=== PATIENT | male | born 1980 | race Hispanic/Latino ===

== ENCOUNTER 2016-06-30 17:08 | Inpatient (IN) | payer OTHER ==
[~2016-06-30] VITALS: Ht 162.6 cm; Wt 57.4 kg
--- NOTE | 2016-06-30 17:27 | NUR ---
PT SIB PCP FOR HYPOTHERMIA AND CLOUDY URINE VIA HOBBS. PT HYPOTHERMIC IN TRIAGE VIA TEMPORAL AT 88.0 DEGREES. PT IS FROM A SHEL[place] AND PER SHELTER EMPLOYEE PT WAS RECENTLY TRANSFERRED FROM [facility] TO [facility]. PT IS MINIMALLY VERBAL AT BASELINE, SHOUTING IN TRIAGE. PER SHELTER EMPLOYEE PT IS AT HIS BASELINE MENTAL STATUS AND HAS BEEN ACTING "LIKE HIMSELF, WE ARE SHOCKED THE DOCTOR SENT US HERE, WE WERE JUST THERE FOR A HEADACHE."
--- NOTE | 2016-06-30 17:33 | NUR ---
PT TO [facility] RM 8 VIA W/C KAIT LUKE AT BEDSIDE FOR EVAL
--- NOTE | 2016-06-30 17:37 | ED AMS/SEIZURE/WEAK/DIZZY ---
History of Present Illness General Chief Complaint: General Adult Stated Complaint: SIB SCHWITZER, HYPOTHERMIC, HYPOTENSION Source: patient Exam Limitations: physical impairment Vital Signs & Intake/Output Vital Signs & Intake/Output Vital Signs Date Time Temp Pulse Resp B/P Pulse O2 O2 Flow FiO2 Ox Delivery Rate 07/01 0042 96.7 78 20 112/64 100 Room Air 07/01 0030 100 Room Air 06/30 2328 98.2 78 20 117/58 100 Room Air 06/30 2231 97.0 74 20 100/50 98 Room Air 06/30 2055 95.4 59 18 101/51 99 Room Air 06/30 2004 94.5 06/30 2003 94.2 56 18 106/53 100 Room Air 06/30 1903 67 22 95/44 96 Room Air 06/30 1830 96 Room Air Room Air 06/30 1751 94.3 06/30 1733 91.5 06/30 1726 88.0 88 14 133/79 99 Room Air ED Intake and Output 07/01 0000 06/30 1200 Intake Total 1000 Output Total Balance 1000 Intake, IV 1000 Patient 135 lb Weight Allergies Coded Allergies: Penicillins (Severe, DIFFICULTY BREATHING 06/30/16) venom-honey bee (Severe, HIVES 06/30/16) Cephalosporins (UNKNOWN PER 06/30/16) NSAIDS (Non-Steroidal Anti-Inflamma (UNKNOWN PER 06/30/16) latex (UNKNOWN PER 06/30/16) shellfish derived (UNKNOWN PER 06/30/16) sulfamethoxazole (From BACTRIM) (UNKNOWN PER 06/30/16) trimethoprim (From BACTRIM) (UNKNOWN PER 06/30/16) Reconcile Medications Acetaminophen 325 MG TABLET 2 TAB G TUBE Q4H PRN PAIN/TEMP>100.5 (Reported) Acetaminophen (Acephen) 650 MG SUPP.RECT 1 SUPP UT Q4H PRN PAIN/TEMP>100.5 ( Reported) Bacitracin 500 UNIT/GRAM OINT...G. 1 KAITY TOP AD PRN ABRASIONS/LACERATIONS ( Reported) apply to affected area(s) Bisacodyl 10 MG SUPP.RECT 1 SUP RC DAILY PRN CONSTIPATION (Reported) Epinephrine (Epipen 2-Blayne) 0.3 MG/0.3 ML AUTO.INJCT 0.3 MG INJ AD PRN ANAPHYLAXIS (Reported) Ergocalciferol (Vitamin D2) (Vitamin D2) 50,000 UNIT CAPSULE 1 CAP G TUBE Q30D SUPPLEMENT (Reported) Ferrous Sulfate (Ferosul) 220 MG (44 MG IRON)/5 ML SOLUTION 7.4 ML G TUBE BID SUPPLEMENT (Reported) Ipratropium/Albuterol Sulfate (Iprat-Albut 0.5-3(2.5) MG/3 Ml) 0.5 MG-3 MG (2.5 MG BASE)/3 ML AMPUL.NEB 1 VIAL INH Q4H PRN COUGH/WHEEZING (Reported) Lactobacillus Acidophilus (Acidophilus) 1 EACH CAPSULE 1 CAP G TUBE TID PROBIOTIC (Reported) Levetiracetam (Keppra) 100 MG/ML SOLUTION 5 ML G TUBE BID SEIZURES (Reported) Levothyroxine Sodium 25 MCG TABLET 1 TAB G TUBE DAILY THYROID (Reported) Magnesium Hydroxide (Milk Of Magnesia) 400 MG/5 ML ORAL.SUSP 30 ML G TUBE DAILY CONSTIPATION (Reported) Melatonin 1 MG/ML LIQUID 3 ML G TUBE QHS SUPPLEMENT (Reported) Na Phos,M-B/Na Phos,Di-Ba (Fleet Enema) 19 GRAM-7 GRAM/118 ML ENEMA 1 E RC DAILY PRN CONSTIPATION (Reported) [NOVA SOURCE RENAL] 220 ML G TUBE 5XDAILY SUPPLEMENT (Reported) Omeprazole 20 MG CAPSULE.DR 1 CAP G TUBE DAILY GI (Reported) Risperidone (Risperidone Odt) 2 MG TAB.RAPDIS 1 TAB G TUBE BID UNKNOWN ( Reported) Valproic Acid (As Sodium Salt) (Valproic Acid) 250 MG/5 ML SOLUTION 20 ML G TUBE Q8H SEIZURES (Reported) Triage Note: PT SIB PCP FOR HYPOTHERMIA AND CLOUDY URINE VIA HOBBS. PT HYPOTHERMIC IN TRIAGE VIA TEMPORAL AT 88.0 DEGREES. PT IS FROM A LONG-TERM AND PER LONG-TERM EMPLOYEE PT WAS RECENTLY TRANSFERRED FROM [facility] TO [facility]. PT IS MINIMALLY VERBAL AT BASELINE, SHOUTING IN TRIAGE. PER LONG-TERM EMPLOYEE PT IS AT HIS BASELINE MENTAL STATUS AND HAS BEEN ACTING "LIKE HIMSELF, WE ARE SHOCKED THE DOCTOR SENT US HERE, WE WERE JUST THERE FOR A HEADACHE." Triage Nurses Notes Reviewed? yes Onset: Abrupt Duration: unknown duration Timing: recent history No Modifying Factors: none HPI: 36-year-old male comes into emergency room for evaluation of hypothermia and low blood pressure. Patient was being evaluated by his primary care doctor and was found to the bee stings in the office. Patient unable to provide any history. 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 ([place]) Past History Travel History Traveled to [place] past 21 day No Medical History Any Pertinent Medical History? see below for history Other Medical Hx: Intellectual disability, infantile autism, aspiration pneumonia, neuromuscular dysfunction, adrenocortical insufficiency, suprapubic urostomy, hypertension, seizures, hypothyroid, anemia, osteoarthritis, chronic kidney disease, constipation, MRSA, C. difficile, vancomycin resistance, Surgical History Surgical History: non-contributory Family History Hx Contributory? No ([place]) Review of Systems Review of Systems Constitutional: Reports: see HPI. EENTM: Reports: no symptoms. Respiratory: Reports: no symptoms. Cardiovascular: Reports: no symptoms. GI: Reports: no symptoms. Genitourinary: Reports: no symptoms. Musculoskeletal: Reports: no symptoms. Skin: Reports: no symptoms. Neurological/Psychological: Reports: no symptoms. Hematologic/Endocrine: Reports: no symptoms. Immunologic/Allergic: Reports: no symptoms. All Other Systems: Reviewed and Negative Comments Patient unable to answer questions, according to care provider all other review of systems negative ([place]) Physical Exam Physical Exam General Appearance: alert, awake Head: atraumatic Eyes: Bilateral: normal appearance. Ears, Nose, Throat: normal ENT inspection Neck: normal inspection Respiratory: normal breath sounds, no respiratory distress Cardiovascular: regular rate/rhythm Gastrointestinal: soft Extremities: normal range of motion Neurologic/Psych: awake, alert Skin: intact, normal color Core Measures ACS in differential dx? No CVA/TIA Diagnosis: No Severe Sepsis Present: Yes BC x2: Yes Lactic Acid x2: Yes IV ABX Broad Spectrum: Yes NS/LR Started: Yes Septic Shock Present: No ([place]) ED Sepsis Exam Date of Focused Sepsis Exam: 06/30/16 Time of Focused Sepsis Exam: 1900 Sepsis Cardiac Exam: Regular Rate/Rhythm Sepsis Resp Exam: CTA Sepsis Cap Refill Exam: <2 Sec Sepsis Peripheral Pulse Exam: Normal Sepsis Peripheral Pulse Location: Radial Sepsis Skin Color Exam: Flushed Skin Temp/Moisture Exam: Cool/Dry ([place]) Progress Differential Diagnosis: arrythmia, alcohol intoxication, anemia, benign positional vertigo, CVA/stroke, dehydration, drug intoxication, encephalitis, electrolyte imbalance, GI bleed, hypoglycemia, hypoxia, intracranial Hem., intracranial mass/tumor, labrynthitis, meningitis, Meniere's disease, migraine MENDEZ, multiple sclerosis, pneumonia, postural hypotension, presyncope, post- traumatic vertigo, sepsis, seizure disorder, subarachnoid Hem., UTI/pyelo, vertebrobasilar insuff Plan of Care: Orders Procedure Date/time Status Nothing by Mouth 07/01 B Active EXTREMETIES CULTURE 07/01 51 Active Wound Care/Dressing 07/01 39 Active Weight 07/01 39 Active VTE Mechanical Prophylaxis 07/01 39 Active Vital Signs 07/01 39 Active Turn and Reposition 07/01 39 Active Drains/Tubes 07/01 39 Active Teach/Educate 07/01 39 Active Skin Integrity Protocol 07/01 004 Active Skin/Pressure Ulcer Assess (Sk 07/01 39 Active Precautions 07/01 39 Active Pain Treatment and Response 07/01 39 Active Nutritional Intake, Monitor 07/01 39 Active Isolation 07/01 004 Active Patient Care Conference 07/01 39 Active Activity/Ambulation 07/01 004 Active VRE ACTIVE SURVIELLANCE 07/01 003 Active ACTIVE SURVEILLANCE NARES 07/01 003 Active Lab Add-on Test 07/01 [facility] Active Restraint- Medical 07/01 [facility] Active PHARMACY COMMUNICATION FORM 07/01 [facility] Active Pathway - chart 06/30 2305 Active House Staff 06/30 2305 Active Patient Data 06/30 2305 Active Code Status 06/30 2305 Active URINE DRUGS OF ABUSE 06/30 2152 Complete Patient Data 06/30 2142 Active Admit to inpatient 06/30 2058 Active LACTIC ACID 06/30 2037 Complete Intake & Output 06/30 1933 Active BLOOD CULTURE 06/30 1915 Active FOLIC ACID 06/30 1815 Complete VITAMIN B12 06/30 1815 Complete TYPE & SCREEN (NOT X-MATCH) 06/30 1804 Complete CULTURE,URINE 06/30 1737 Active URINALYSIS 06/30 1737 Complete TROPONIN LEVEL 06/30 1737 Complete LACTIC ACID 06/30 1737 Complete COMPREHENSIVE METABOLIC PANEL 06/30 1737 Complete CBC WITHOUT DIFFERENTIAL 06/30 1737 Complete EKG 06/30 1737 Active VTE Mechanical Prophylaxis 06/30 UNK Active NUTRITIONAL CONSULT 06/30 UNK Active Current Medications Sig/Judi Start time Last Medication Dose Stop Time Status Admin Melatonin 3 MG AT BEDTIME 07/01 2200 AC (Melatonin) Ferrous Sulfate 300 MG BID 07/01 1000 AC Lactobacillus 1 CAP TID 07/01 1000 AC Acidophilus (Probiotic) Omeprazole 20 MG DAILY 07/01 1000 AC (Prilosec) Vancomycin HCl 1,000 MG DAILY 07/01 1000 AC Sodium Chloride 250 ML (Normal Saline 0.9%) Levothyroxine Sodium 0.025 MG DAILY AC 07/01 0700 AC (Synthroid) Ceftazidime 1,000 MG Q8H 07/01 0400 AC (Fortaz) Magnesium Hydroxide 30 ML DAILY PRN 07/01 0015 AC (Milk Of Magnesia) Acetaminophen 650 MG Q4H PRN 06/30 2330 AC (Tylenol) Bisacodyl 10 MG DAILY PRN 06/30 2330 AC (Dulcolax Supp) Laboratory Tests 06/30/16 2240: Lactic Acid 0.6 L 06/30/16 1824: Urine Opiates Screen < 100.00, Methadone Screen < 40, Barbiturate Screen < 60, Ur Phencyclidine Scrn < 6.00, Amphetamines Screen < 100, U Benzodiazepines Scrn < 85, Urine Cocaine Screen < 50, Urine Cannabis Screen < 5.00, Urine Color YEL, Urine Clarity CLDY H, Urine pH 8.5 H, Ur Specific Froid <= 1.005, Urine Protein 30 H, Urine Ketones NEG, Urine Nitrite NEG, Urine Bilirubin NEG, Urine Urobilinogen 0.2, Ur Leukocyte Esterase LARGE H, Ur Microscopic SEDIMENT EXAMINED, Urine RBC 3-5, Urine WBC PACKD H, Ur Epithelial Cells MOD H, Urine Crystals 3+ TRIP PHOS H, Urine Hemoglobin TRACE-INTACT H, Urine Glucose NEG 06/30/16 1815: Anion Gap 11, Estimated GFR > 60, BUN/Creatinine Ratio 78.0 H, Glucose 79, Lactic Acid 1.1, Calcium 10.0, Total Bilirubin 0.5, AST 58, ALT 48, Alkaline Phosphatase 97, Troponin I < 0.01, Total Protein 7.0, Albumin 3.5, Globulin 3.5, Albumin/Globulin Ratio 1.0 L, Vitamin B12 826, Folate > 20.0 H, CBC w Diff NO MAN DIFF REQ, RBC 3.55 L, MCV 93.9, MCH 31.5 H, RDW 16.5 H, MPV 10.4, Gran % 61.5, Lymphocytes % 23.8, Monocytes % 8.5, Eosinophils % 5.8 H, Basophils % 0.4 , Absolute Granulocytes 3.2, Absolute Lymphocytes 1.2, Absolute Monocytes 0.4, Absolute Eosinophils 0.3, Absolute Basophils 0, PUBS MCHC 33.6 Microbiology 07/01 44 EXTREMITIE: Culture & Sensitivity - RECD 07/01 44 EXTREMITIE: Gram Stain - RECD 07/01 44 UPPER RESP: Surveillance Culture - RECD 07/01 44 GI: Surveillance Culture - RECD 06/30 1929 BLOOD: Blood Culture - RECD 06/30 1921 BLOOD: Blood Culture - RECD 06/30 1823 URINE ROUT: Urine Culture - RECD Diagnostic Imaging: Viewed by Me: CT Scan. Discussed w/RAD: CT Scan. Radiology Impression: SERVICE DATE: 06/30/16 EXAM TYPE: CAT - CT ABD & PELVIS W/O IV CONTRAS; CT CHEST WO IV CONTRAST EXAMINATION: CT CHEST, ABDOMEN AND PELVIS WITHOUT CONTRAST CLINICAL INFORMATION: Septic. Altered mental status. COMPARISON: None. TECHNIQUE: Multidetector volumetric CT images obtained through the chest abdomen pelvis without oral or IV contrast. Coronal and sagittal reformatted images are performed at the CT scanner DLP: 370.8 mGy-cm. FINDINGS: CT CHEST: Lungs: The lungs are clear with no evidence of inflammation or nodules. Mediastinum: The mediastinum is normal. Pleura: There is no pleural effusion. No pleural mass or thickening. Axilla: No lymphadenopathy. CT ABDOMEN AND PELVIS: LIVER, GALLBLADDER, AND BILIARY TREE: There are scattered calcified granuloma in the right and left lobe of liver. No focal suspicious liver lesion. No intrahepatic bile duct dilatation. The gallbladder is unremarkable with no evidence of radiopaque gallstones, gallbladder wall thickening, or obvious pericholecystic inflammatory changes. PANCREAS: No acute change of the pancreas. No mass. No pancreatic duct dilatation. SPLEEN: Spleen normal in size and contour. No focal lesion. ADRENAL GLANDS: Adrenal glands are normal in size. No focal mass. KIDNEYS AND URETERS: Mild dilatation of the collecting system of both kidneys to the ureterovesical junction. There are a few small nonobstructive stones in the right and left kidneys. No ureteral calculus. No edema around either kidney. Perinephric fat is normal. BLADDER: Suprapubic catheter in place. Bladder empty. GASTROINTESTINAL TRACT: Rectal catheter in place. Percutaneous gastrotomy tube. Tube in good position with no inflammation. No hernia at the abdominal wall No acute change of the bowel. No bowel obstruction. No bowel wall thickening or edema. Moderate volume of stool in the colon. The small bowel loops are unremarkable. The appendix is not seen. No inflammation of the mesentery. Bowel wall thickening or edema. MESENTERY: No focal inflammation. No free fluid. No free air. ABDOMINAL WALL: No significant hernia is appreciated. LYMPH NODES: Normal. VASCULAR: Unremarkable. PELVIC VISCERA: Unremarkable. OSSEOUS STRUCTURES: Degenerative change of the lumbar spine. Bilateral spondylolysis L5 pars interarticularis without spondylolysis. IMPRESSION: Percutaneous gastrotomy tube. Suprapubic catheter in bladder. Bilateral nonobstructive renal stones. Mild hydronephrosis of both kidneys which could be chronic. No ureteral calculus. DICTATED BY: ARON VALENTINE MD DATE/TIME DICTATED:06/30/161845 Initial ED EKG: normal intervals, normal p-waves, normal sinus rhythm, rate (67) ([place]) Departure Departure Disposition: STILL A PATIENT Condition: Stable Clinical Impression Primary Impression: Hypothermia Secondary Impressions: Sepsis, UTI (urinary tract infection) Departure Forms: Customer Survey General Discharge Information ([place]) Admission Note Spoke With: JEANETTE BISHOP,DESIRE Tyler Documentation of Exam: Documentation of any treatments & extenuating circumstances including Concerns Regarding Discharge (functional status, medication knowledge or non-compliance, living conditions, etc.) that warrant an admission rather than observation: pt with urosepsis, hypothermia, shock, now improving... pt merits icu admission for iv abx, bear-hugger for hypothermia. PA/DISTRIBUTION AGENT Co-Sign Statement Statement: ED Attending supervision documentation- [x] I saw and evaluated the patient. I have also reviewed all the pertinent lab results and diagnostic results. I agree with the findings and the plan of care as documented in the PA's/DISTRIBUTION AGENT's documentation. pt signed out to me. pt with urosepsis, hypothermia..... pt to be admitted to icu. [] I have reviewed the ED Record and agree with the PA's/DISTRIBUTION AGENT's documentation. [] Additions or exceptions (if any) to the PAs/DISTRIBUTION AGENT's note and plan are summarized below: [] (ALEC BISHOP,VIPIN Rincon) Critical Care Note Critical Care Note Critical Care Time: 30-74 min (TI CARBALLO,NEW)
--- NOTE | 2016-06-30 17:40 | NUR ---
PT NOTED TO HAVE PREHOSPITAL SUPERPUBIC CATHETER AND GASTRIC TUBE. ALSO NOTED TO HAVE DRESSING IN PLACE TO BUTTOCKS, DRESSING IS CLEAN/DRY/INTACT.
--- NOTE | 2016-06-30 18:00 | NUR ---
SPOKE WITH MESFIN RUTHERFORD FROM [facility] WHO REPORTS THAT PATIENT IS NEW TO THEIR FACILITY X 1 DAY AND THAT HE WAS REPORTED TO NEED MONTHLY BLOOD TRANSFUSIONS, HAD H/H OF 7 AND 23 IN APRIL, BUN WAS ELEVATED AND CREATININE WAS NORMAL. STATES YESTERDAY HE WAS NORMAL TEMPERATURE, HYPOTHERMIA STARTED TODAY. REPORTS THAT PRIOR TO BEING WITH THEM HE WAS BACK AND FORTH BETWEEN A HOSPITAL AND THE HALFWAY IN [place] WHERE HE WAS RESIDING. STATES THE FAMILY WANTED HIM MOVED TO A [facility] CLOSER TO THEM WHICH IS WHY HE WAS MOVED TO [place].
[2016-06-30] MEDS ORDERED: FEROSUL220 MG/5 M G TUBE (18:08)
[2016-06-30] MEDS ORDERED: ACIDOPHILUS1 EACH G TUBE (18:09)
[2016-06-30] MEDS ORDERED: KEPPRA100 MG/1 M G TUBE (18:09)
[2016-06-30] MEDS ORDERED: LEVOTHYROXINE25 MCG G TUBE (18:10)
[2016-06-30] MEDS ORDERED: MELATONIN1 MG/1 ML G TUBE (18:11)
[2016-06-30] MEDS ORDERED: OMEPRAZOLE20 M2 G TUBE (18:12)
[2016-06-30] MEDS ORDERED: RISPERIDONE ODT2 MG G TUBE (18:13)
[2016-06-30] MEDS ORDERED: VITAMIN D250000 UNIT G TUBE (18:14)
[2016-06-30] MEDS ORDERED: VALPROIC A250 MG/51 G TUBE (18:14)
[2016-06-30] MEDS ORDERED: [UNRECOGNIZED DRUG - OTHER] G TUBE (18:16)
[2016-06-30] MEDS ORDERED: MILK OF MA400 MG/52 G TUBE (18:18)
[2016-06-30] MEDS ORDERED: IPRAT-ALBUT 0.5-3 ML INH (18:18)
[2016-06-30] MEDS ORDERED: FLEET ENEMA133 ML RC ×2 (18:19→23:16)
[2016-06-30] MEDS ORDERED: BISACODYL10 M1 RC (18:20)
[2016-06-30] MEDS ORDERED: ACEPHEN650 M1 PR (18:21)
[2016-06-30] MEDS ORDERED: ACETAMINOPHEN325 M2 G TUBE (18:21)
[2016-06-30] MEDS ORDERED: BACITRACIN28.4 GM TOP (18:22)
[2016-06-30] MEDS ORDERED: EPIPEN 2-P0.3 MG/0.3 INJ (18:24)
--- NOTE | 2016-06-30 18:26 | NUR ---
PT MOVED TO [facility]CH[facility] WITH ASSIST OF 2 STAFF, RECTAL TEMP OBTAINED (94.3), YOUSUF HUGGER BLANKET APPLIED. IV ACCESS ESTABLISHED, #22 [facility] LABS DRAWN/SENT EKG DONE BY PORSCHE DELGADILLO PT TAKEN TO CT SCAN VIA STRETCHER
[2016-06-30 18:31] LABS: ABSOLUTE BASOPHIL COUNT 0 /CUMM (0.0-0.2); ABSOLUTE EOSINOPHIL COUNT 0.3 /CUMM (0.0-0.7); ABSOLUTE GRANULOCYTE CT 3.2 /CUMM (1.4-6.5); ABSOLUTE LYMPH COUNT 1.2 /CUMM (1.2-3.4); ABSOLUTE MONOCYTE COUNT 0.4 /CUMM (0.10-0.60); BASOPHIL % 0.4 % (0.0-2.0); EOSINOPHIL % 5.8 % (0-5); GRANULOCYTE % 61.5 % (42.2-75.2); HEMATOCRIT 33.3 % (42-52); MEAN CORPUSCULAR HGB 31.5 PG (27.0-31.0); MEAN CORPUSCULAR HGB CONC 33.6 G/DL (33.0-37.0); MEAN CORPUSCULAR VOLUME 93.9 FL (80.0-94.0); MEAN PLATELET VOLUME 10.4 FL (7.4-10.4); PLATELET COUNT 125 /CUMM (130-400); RBC DISTRIBUTION WIDTH 16.5 % (11.5-14.5); RED BLOOD CELL CT 3.55 /CUMM (4.70-6.10); WHITE BLOOD CELL COUNT 5.3 /CUMM (4.8-10.8)
--- NOTE | 2016-06-30 18:56 | NUR ---
PT TO/FROM CT SCAN VIA STRETCHER
--- NOTE | 2016-06-30 19:36 | NUR ---
REPEAT PINK TOP TUBE DRAWN/SENT (1ST SPECIMEN HEMOLYZED) B/C X 2 DRAWN/SENT IVF N/S INFUSION INITIATED AND PATIENT MEDICATED WITH FORTAZ PER ORDERS PT WILL ONLY TOLERATE YOUSUF HUGGER UP TO TORSO, REPEATEDLY KEEPS ARMS AND UPPER BODY OUT OF BLANKETS. TEMP DROPPED TO 93.9 AFTER GOING TO/FROM CT SCAN AND NOW IS UP TO 94.3 AGAIN. KAIT WOLFF AWARE OF SAME, NO NEW ORDERS.
--- NOTE | 2016-06-30 19:54 | NUR ---
IV VANCOMYCIN INFUSION INITIATED PER ORDERS. REPEAT PINK TOP HEMOLYZED, ASSISTANT SALES CENTER MANAGER AT BEDSIDE FOR REDRAW.
--- NOTE | 2016-06-30 20:30 | NUR ---
2ND LITER N/S INFUSION INITIATED PER ORDERS
--- NOTE | 2016-06-30 20:31 | CT SCAN REPORT ---
EXAMINATION: CT CHEST, ABDOMEN AND PELVIS WITHOUT CONTRAST CLINICAL INFORMATION: Septic. Altered mental status. COMPARISON: None. TECHNIQUE: Multidetector volumetric CT images obtained through the chest abdomen pelvis without oral or IV contrast. Coronal and sagittal reformatted images are performed at the CT scanner DLP: 370.8 mGy-cm. FINDINGS: CT CHEST: Lungs: The lungs are clear with no evidence of inflammation or nodules. Mediastinum: The mediastinum is normal. Pleura: There is no pleural effusion. No pleural mass or thickening. Axilla: No lymphadenopathy. CT ABDOMEN AND PELVIS: LIVER, GALLBLADDER, AND BILIARY TREE: There are scattered calcified granuloma in the right and left lobe of liver. No focal suspicious liver lesion. No intrahepatic bile duct dilatation. The gallbladder is unremarkable with no evidence of radiopaque gallstones, gallbladder wall thickening, or obvious pericholecystic inflammatory changes. PANCREAS: No acute change of the pancreas. No mass. No pancreatic duct dilatation. SPLEEN: Spleen normal in size and contour. No focal lesion. ADRENAL GLANDS: Adrenal glands are normal in size. No focal mass. KIDNEYS AND URETERS: Mild dilatation of the collecting system of both kidneys to the ureterovesical junction. There are a few small nonobstructive stones in the right and left kidneys. No ureteral calculus. No edema around either kidney. Perinephric fat is normal. BLADDER: Suprapubic catheter in place. Bladder empty. GASTROINTESTINAL TRACT: Rectal catheter in place. Percutaneous gastrotomy tube. Tube in good position with no inflammation. No hernia at the abdominal wall No acute change of the bowel. No bowel obstruction. No bowel wall thickening or edema. Moderate volume of stool in the colon. The small bowel loops are unremarkable. The appendix is not seen. No inflammation of the mesentery. Bowel wall thickening or edema. MESENTERY: No focal inflammation. No free fluid. No free air. ABDOMINAL WALL: No significant hernia is appreciated. LYMPH NODES: Normal. VASCULAR: Unremarkable. PELVIC VISCERA: Unremarkable. OSSEOUS STRUCTURES: Degenerative change of the lumbar spine. Bilateral spondylolysis L5 pars interarticularis without spondylolysis. IMPRESSION: Percutaneous gastrotomy tube. Suprapubic catheter in bladder. Bilateral nonobstructive renal stones. Mild hydronephrosis of both kidneys which could be chronic. No ureteral calculus.
--- NOTE | 2016-06-30 21:03 | NUR ---
PT MORE COMPLIANT WITH YOUSUF HUGGER BLANKET RECTAL TEMP 95.4 WILL CONTINUE TO MONITOR
--- NOTE | 2016-06-30 22:37 | NUR ---
PT HAS BED ASSIGNMENT 112
--- NOTE | 2016-06-30 22:42 | NUR ---
HOUSESTAFF AT BEDSIDE TEMP >97.0, YOUSUF ROWAN DISCONTINUED AT THIS TIME. WILL CONTINUE TO MONITOR.
--- NOTE | 2016-06-30 23:02 | History & Physical ---
See Addendum General Information and HPI Source of Information: old records Exam Limitations: unable to give history History of Present Illness: His 36-year-old man with past medical history of intellectual disability, infantile autism, history of aspiration pneumonia, dysphagia with gastrostomy tube, neuromuscular dysfunction of bladder with suprapubic catheter, adrenocortical insufficiency, essential hypertension, seizures, hypothyroidism, anemia, chronic kidney disease, osteoarthritis, constipation, MRSA and VRE positive, history of C. difficile was sent into [facility] by PCP, Dr. Dodd because he was found to be hypothermic in his office. This was his first visit in Dr. Dodd's office. Upon presentation in ER his temperature was 88 temporal, pulse 88, respiratory rate 14, blood pressure 133/79 and oxygen saturation 99% on room air. Patient is from [facility] and per caregiver patient was recently transferred from [facility]. Patient is minimally verbal at baseline, wheelchair bound. I reviewed paperwork from [facility] and got past medical history, medication list and previous blood work. I tried to get information from caregiver but he did not know much about patient. I spoke with the [facility] on-call nurse, Cassi and she was also not able to give me more information as patient was just transferred one day ago. He moved from [facility] as family wanted him to move closer to them. Patient can say only one or 2 words in Dominican. I tried to call guardian, Carole Willis [phone]. Nobody picked up so I left a voicemail to call me back. According to nurse at [facility], Stephanie, we can get some more information from business segment manager, Alivia [phone]. Allergies/Medications Allergies: Coded Allergies: Penicillins (Severe, DIFFICULTY BREATHING 06/30/16) venom-honey bee (Severe, HIVES 06/30/16) Cephalosporins (UNKNOWN PER 06/30/16) NSAIDS (Non-Steroidal Anti-Inflamma (UNKNOWN PER 06/30/16) latex (UNKNOWN PER 06/30/16) shellfish derived (UNKNOWN PER 06/30/16) sulfamethoxazole (From BACTRIM) (UNKNOWN PER 06/30/16) trimethoprim (From BACTRIM) (UNKNOWN PER 06/30/16) Home Med list Acetaminophen 325 MG TABLET 2 TAB G TUBE Q4H PRN PAIN/TEMP>100.5 (Reported) Acetaminophen (Acephen) 650 MG SUPP.RECT 1 SUPP AZ Q4H PRN PAIN/TEMP>100.5 ( Reported) Bacitracin 500 UNIT/GRAM OINT...G. 1 KAITY TOP AD PRN ABRASIONS/LACERATIONS ( Reported) apply to affected area(s) Bisacodyl 10 MG SUPP.RECT 1 SUP RC DAILY PRN CONSTIPATION (Reported) Epinephrine (Epipen 2-Blayne) 0.3 MG/0.3 ML AUTO.INJCT 0.3 MG INJ AD PRN ANAPHYLAXIS (Reported) Ergocalciferol (Vitamin D2) (Vitamin D2) 50,000 UNIT CAPSULE 1 CAP G TUBE Q30D SUPPLEMENT (Reported) Ferrous Sulfate (Ferosul) 220 MG (44 MG IRON)/5 ML SOLUTION 7.4 ML G TUBE BID SUPPLEMENT (Reported) Ipratropium/Albuterol Sulfate (Iprat-Albut 0.5-3(2.5) MG/3 Ml) 0.5 MG-3 MG (2.5 MG BASE)/3 ML AMPUL.NEB 1 VIAL INH Q4H PRN COUGH/WHEEZING (Reported) Lactobacillus Acidophilus (Acidophilus) 1 EACH CAPSULE 1 CAP G TUBE TID PROBIOTIC (Reported) Levetiracetam (Keppra) 100 MG/ML SOLUTION 5 ML G TUBE BID SEIZURES (Reported) Levothyroxine Sodium 25 MCG TABLET 1 TAB G TUBE DAILY THYROID (Reported) Magnesium Hydroxide (Milk Of Magnesia) 400 MG/5 ML ORAL.SUSP 30 ML G TUBE DAILY CONSTIPATION (Reported) Melatonin 1 MG/ML LIQUID 3 ML G TUBE QHS SUPPLEMENT (Reported) Na Phos,M-B/Na Phos,Di-Ba (Fleet Enema) 19 GRAM-7 GRAM/118 ML ENEMA 1 E RC DAILY PRN CONSTIPATION (Reported) [NOVA SOURCE RENAL] 220 ML G TUBE 5XDAILY SUPPLEMENT (Reported) Omeprazole 20 MG CAPSULE.DR 1 CAP G TUBE DAILY GI (Reported) Risperidone (Risperidone Odt) 2 MG TAB.RAPDIS 1 TAB G TUBE BID UNKNOWN ( Reported) Valproic Acid (As Sodium Salt) (Valproic Acid) 250 MG/5 ML SOLUTION 20 ML G TUBE Q8H SEIZURES (Reported) Compliance With Home Meds: GOOD Past History Travel History Traveled to [place] past 21 day No Medical History Neurological: seizure, INTELLECTUAL DISABILITY INFANTILE AUTISM EENT: DYSPHAGIA Cardiovascular: ESSENTIAL HYPERTENSION Respiratory: ASPIRATION PNEUMONIA Gastrointestinal: constipation, GASTROSTOMY C-DIFF Renal: chronic kidney disease, NEUROMUSCULAR DYSFUNCTION OF BLADDER W/SUPERPUBIC UROSTOMY Musculoskeletal: osteoarthritis, MRSA VRE Endocrine: hypothyroidism, ADREDOCORTICAL INSUFF. Blood Disorders: anemia Other Medical Hx: Intellectual disability, infantile autism, aspiration pneumonia, neuromuscular dysfunction, adrenocortical insufficiency, suprapubic urostomy, hypertension, seizures, hypothyroid, anemia, osteoarthritis, chronic kidney disease, constipation, MRSA, C. difficile, vancomycin resistance, Surgical History Surgical History: non-contributory Past Family/Social History Psychosocial History Who Do You Live With? [facility] Functional Ability ADLs Needs Assist: dressing, eating, toileting, bathing. Ambulation: non-ambulatory IADLs Needs Assist: shopping, housework, finances, food prep, telephone, transportation, medication admin. Review of Systems Review of Systems Constitutional: Reports: see HPI. Exam & Diagnostic Data Last 24 Hrs of Vital Signs/I&O Vital Signs Date Time Temp Pulse Resp B/P Pulse O2 O2 Flow FiO2 Ox Delivery Rate 06/30 2327 98.2 78 20 117/58 100 Room Air 06/30 2231 97.0 74 20 100/50 98 Room Air 06/30 205 95.4 59 18 101/51 99 Room Air 06/30 2005 94.5 06/30 2004 94.2 56 18 106/53 100 Room Air 06/30 1903 67 22 95/44 96 Room Air 06/30 1830 96 Room Air Room Air 06/30 1751 94.3 06/30 1733 91.5 06/30 1726 88.0 88 14 133/79 99 Room Air Physical Exam General Appearance Alert, confused Skin left buttock decubitus ulcer. 1-1.5 cm wide and 3 cm deep. no discharge coning out actively. surrounding skin mildly erythematous. tender to touch Neck Supple Cardiovascular Regular Rate, No Murmurs Lungs Clear to Auscultation, decreased air entry b/l lung bases Abdomen Soft, No Tenderness, PEG tube without surrounding erythema. suprapubic catheter with normal surrounding skin Extremities No Edema Last 24 Hrs of Labs/Kashif: Laboratory Tests 06/30/16 2240: Lactic Acid 0.6 L 06/30/16 1824: Urine Color YEL, Urine Clarity CLDY H, Urine pH 8.5 H, Ur Specific [place] <= 1.005, Urine Protein 30 H, Urine Ketones NEG, Urine Nitrite NEG, Urine Bilirubin NEG, Urine Urobilinogen 0.2, Ur Leukocyte Esterase LARGE H, Ur Microscopic SEDIMENT EXAMINED, Urine RBC 3-5, Urine WBC PACKD H, Ur Epithelial Cells MOD H, Urine Crystals 3+ TRIP PHOS H, Urine Hemoglobin TRACE-INTACT H, Urine Glucose NEG 06/30/161814: Anion Gap 11, Estimated GFR > 60, BUN/Creatinine Ratio 78.0 H, Glucose 79, Lactic Acid 1.1, Calcium 10.0, Total Bilirubin 0.5, AST 58, ALT 48, Alkaline Phosphatase 97, Troponin I < 0.01, Total Protein 7.0, Albumin 3.5, Globulin 3.5, Albumin/Globulin Ratio 1.0 L, CBC w Diff NO MAN DIFF REQ, RBC 3.55 L, MCV 93.9 , MCH 31.5 H, RDW 16.5 H, MPV 10.4, Gran % 61.5, Lymphocytes % 23.8, Monocytes % 8.5, Eosinophils % 5.8 H, Basophils % 0.4, Absolute Granulocytes 3.2, Absolute Lymphocytes 1.2, Absolute Monocytes 0.4, Absolute Eosinophils 0.3, Absolute Basophils 0, PUBS MCHC 33.6 Microbiology 06/30 1929 BLOOD: Blood Culture - RECD 06/30 1921 BLOOD: Blood Culture - RECD 06/30 1823 URINE ROUT: Urine Culture - RECD Diagnostic Data EKG Results Normal sinus rhythm with heart rate 67. No acute ST-T wave changes. QTc 431. Other Results CT abdomen and pelvis chest without contrast IMPRESSION: Percutaneous gastrotomy tube. Suprapubic catheter in bladder. Bilateral nonobstructive renal stones. Mild hydronephrosis of both kidneys which could be chronic. No ureteral calculus. Lungs: The lungs are clear with no evidence of inflammation or nodules. Mediastinum: The mediastinum is normal. Pleura: There is no pleural effusion. No pleural mass or thickening. Axilla: No lymphadenopathy. Assessment/Plan Assessment: He is 36-year-old man with past medical history of intellectual disability, infantile autism, history of aspiration pneumonia, dysphagia with gastrostomy tube, neuromuscular dysfunction of bladder with suprapubic catheter, adrenocortical insufficiency, essential hypertension, seizures, hypothyroidism, anemia, chronic kidney disease, osteoarthritis, constipation, MRSA and VRE positive, history of C. difficile is going to be admitted in critical care unit with: 1. Sepsis most likely urologic intervention vs decubitus ulcer on left buttock. I reviewed patient's chart and found out that his UA was also positive on 05/29. Cultures were sent that time and on the paper it's showing pending result. As patient just moved into [facility] one day ago so I could not get more information from cogeneration operator nurse and caregiver. Don't know if patient received antibiotics for that. As patient has suprapubic catheter so bacterial colonization could be a possibility. Patient also has stage IV decubitus ulcer on left buttock that is 1-1.5 cm wide and 3 cm deep. Surrounding area is mildly erythematous and it's tender to touch. There is no active discharge coming out from the wound. Culture were taken and sent to lab. Area surrounding PEG tube and suprapubic catheter is clean. CT chest is not showing any evidence of infectious process. Patient is not coughing. Patient got one time dose of vancomycin and Ceftaz in ER. Because of hypothermia patient was initially put on beer hugger but later on his temperature went up to 97. Beer hugger was discontinued. Patient is hemodynamically stable. We will continue Vanco/ ceftaz. Patient is allergic to penicillin, cephalosporins and Bactrim. ID consult in a.m. Will follow-up blood and urine cultures. Please note patient also has history of adrenocortical insufficiency but he is not on any steroids at home. 2. Normocytic anemia According to records from [facility] patient hemoglobin was 7.5 in April and he was transfused with 2 units of blood transfusion. He is already on iron supplements. We will continue them. Will check vitamin B12 and folate. 3. History of seizure disorder Will continue Keppra and valproic acid via G tube 4. History of Hypothyroidism Will continue levothyroxine via G-tube Patient is nothing by mouth. On tube feeds at [facility]. We are not starting tube feeds right now. We will get nutrition consult in a.m. Gentle IV hydration. Alps for DVT prophylaxis because of thrombocytopenia. We'll monitor platelets count daily. No signs of active bleeding Patient is full code Will call guardianCarole [phone] and [facility] to get more information. [facility] . I called guardian to update him about plan of care but he didn't poultry picker and I left a voicemail to call back. As Ranked By This Provider Problem List: 1. Hypothermia Core Measures/Miscellaneous Acute Coronary Syndrome ACS Diagnosis: No Cerebrovascular Accident CVA/TIA Diagnosis: No Congestive Heart Failure CHF Diagnosis: No Venous Thromboembolism VTE Risk Factors: Acute medical illness VTE Prophylaxis Ordered Inpt: Mechanical (ALPS/TEDS) No Mech VTE prophylaxis d/t: No contraindications No VTE Pharm Prophylaxis d/t: Medical contraindication VTE Diagnosis: No VTE Type: NONE VTE Confirmed by (Test): NONE Severe Sepsis Severe Sepsis Present: Yes BC x2: Yes Lactic Acid x2: Yes IV ABX Broad Spectrum: Yes NS/LR Started: Yes Septic Shock Septic Shock Present: No Miscellaneous Documentation Attending Case Discussed With: JEANETTE BISHOP,DESIRE Tyler Primary Care Physician: JANESSA DODD MD Patient sees these Specialists none Level of Patient Care: Critical Care (CRI) Consults Needed: Consulting Specialty: Infectious Disease
[2016-06-30] MEDS ORDERED: VITAMIN D250000 UNIT PO (23:13)
--- NOTE | 2016-06-30 23:27 | NUR ---
REPORT TO MESFIN MCGEE IN ICU
[2016-07-01 00:42] VITALS: BP 112/64
--- NOTE | 2016-07-01 02:00 | NUR ---
PT ALERT, AGITATED. PT NONVERBAL SPEAKS A FEW GEORGIAN WORDS. PT RESISTIVE TO CARE. UPON ARRIVAL TO FLOOR PT TEMP 96.7 RECTALLY. PT LUNGS CLEAR ON RA. PLACED ON MONITOR HEARTRATE IN THE 80S. PT ATTEMPTING TO REMOVE LINES AND MONITOR. SOFT WRIST APPLIED. PT GIVEN SEIZURES MEDS AT 0100. PT NOW RESTING COMFORTABLY IN BED. ALL CARE EXPLAINED. PT HAS NO UNDERSTANDING. IVFS INFUSING ORDERED BY MD. PT HAS 1.5CM (w) x 1.5CM (l) x 3CM (d) WOUND TO LEFT ISCHIUM. WET TO DRY DRESSING APPLIED PER MD. BEDALARM APPLIED. WOUNDCARE EVAL PLACED. SPEACIALTY MATRESS TO BE ORDERED. PT HAS SPT DRAINING CLOUDY FOUL SMELLING URINE. WILL CONTINUE TO MONITOR.
[2016-07-01 06:31] LABS: ABSOLUTE BASOPHIL COUNT 0 /CUMM (0.0-0.2); ABSOLUTE EOSINOPHIL COUNT 0.3 /CUMM (0.0-0.7); ABSOLUTE GRANULOCYTE CT 1.5 /CUMM (1.4-6.5); ABSOLUTE LYMPH COUNT 1.2 /CUMM (1.2-3.4); ABSOLUTE MONOCYTE COUNT 0.3 /CUMM (0.10-0.60); BASOPHIL % 0.6 % (0.0-2.0); GRANULOCYTE % 47.4 % (42.2-75.2); MEAN CORPUSCULAR HGB 31.8 PG (27.0-31.0); MEAN CORPUSCULAR HGB CONC 33.5 G/DL (33.0-37.0); MEAN CORPUSCULAR VOLUME 94.7 FL (80.0-94.0); MEAN PLATELET VOLUME 9.3 FL (7.4-10.4); PLATELET COUNT 87 /CUMM (130-400); RBC DISTRIBUTION WIDTH 16.3 % (11.5-14.5); RED BLOOD CELL CT 2.83 /CUMM (4.70-6.10); WHITE BLOOD CELL COUNT 3.2 /CUMM (4.8-10.8)
[2016-07-01 06:37] LABS: HEMATOCRIT 26.8 % (42-52)
--- NOTE | 2016-07-01 07:13 | Admission Certification ---
Admission Certification Certification Statement - As attending physician, I certify that at the time of - admission, based on clinical presentation, severity of - symptoms, need for further diagnostic testing and - therapeutic interventions, and risk of adverse outcomes - without in-hospital treatment, in my clinical assessment, - this patient requires an acute hospital stay for a minimum - of two nights or longer. I have also considered psychsocial - factors such as support system, advanced age, financial - issues, cognitive issues, and failed out-patient treatments, - past re-admission history, safety of patient, and lack of - compliance as applicable. Specific rationale supporting this admission is: Admitted from a custodial with the questionable sepsis secondary to decubitus ulcer versus urosepsis.
--- NOTE | 2016-07-01 07:13 | PN- Att Addend ---
Attending Addendum Attending Brief Note Intake & Output 07/01 0807/01 0000 06/30 1600 Intake Total 483 1000 Output Total 1800 Balance -1317 1000 Intake, IV 363 1000 Intake, Oral 0 Intake, Tube 120 Irrigant Number 0 Bowel Movements Output, Urine 1800 Patient 127 lb 135 lb Weight Current Medications Sig/Judi Start time Last Medication Dose Route Stop Time Status Admin Acetaminophen 650 MG Q4H PRN 06/30 2330 AC PO Bisacodyl 10 MG DAILY PRN 06/30 2330 AC TX Ceftazidime 1,000 MG Q8H 07/01 0400 AC 07/01 IV 0408 Ceftazidime 1,000 MG IQ8 07/01 0000 DC IV Ceftazidime 0 .STK-MED ONE 06/30 1935 DC .ROUTE Ceftazidime 1,000 MG ONCE ONE 06/30 1744 DC 06/30 IV 06/30 1745 193 Dextrose/Sodium 1,000 ML .[id number] 06/30 2315 AC 07/01 Chloride IV 0103 Ferrous Sulfate 325 MG BID 07/01 1000 DC PO Ferrous Sulfate 300 MG BID 07/01 1000 AC PO Lactobacillus 1 CAP TID 07/01 1000 AC Acidophilus PO Levetiracetam 500 MG BID 07/01 1000 AC 07/01 G TUBE 0104 Levothyroxine Sodium 0.025 MG DAILY AC 07/01 0700 AC PO Magnesium Hydroxide 30 ML DAILY PRN 07/01 0015 AC PO Melatonin 3 MG AT BEDTIME 07/01 2200 AC PO Omeprazole 20 MG DAILY 07/01 1000 AC PO Risperidone 2 MG BID 07/01 1000 AC 07/01 PO 0104 Sodium Chloride 1,000 ML BOLUS ONE 06/30 184 DC 06/30 IV 06/30 194 2030 Sodium Chloride 1,000 ML BOLUS ONE 06/30 174 DC 06/30 IV 06/30 1843 195 Valproic Acid 1,000 MG Q8 07/01 0600 AC 07/01 PO 0103 Vancomycin HCl 1,000 MG DAILY 07/01 1000 AC Sodium Chloride 250 ML IV Vancomycin HCl 0 .STK-MED ONE 06/30 1935 DC .ROUTE Vancomycin HCl 1,000 MG ONCE ONE 06/30 174 DC 06/30 Sodium Chloride 250 ML IV 06/30 1843 195 Laboratory Tests 07/01 06/30 06 2240 Chemistry Sodium (137 - 145 mmol/L) 142 Potassium (3.5 - 5.1 mmol/L) 4.5 Chloride (98 - 107 mmol/L) 104 Carbon Dioxide (22 - 30 mmol/L) 31 H Anion Gap (5 - 16) 7 BUN (9 - 20 mg/dL) 55 H Creatinine (0.7 - 1.2 mg/dL) 0.9 Estimated GFR (>60 ml/min) > 60 Glucose (65 - 99 mg/dL) 61 L Lactic Acid (0.7 - 2.1 mmol/L) 0.6 L Calcium (8.4 - 10.2 mg/dL) 9.3 Phosphorus (2.5 - 4.5 mg/dL) 3.5 Magnesium (1.6 - 2.3 mg/dL) 1.8 Total Bilirubin (0.2 - 1.3 mg/dL) 0.2 AST (17 - 59 U/L) 34 ALT (21 - 72 U/L) 39 Albumin (3.5 - 5.0 g/dL) 2.4 L Hematology CBC w Diff NO MAN DIFF REQ WBC (4.8 - 10.8 /CUMM) 3.2 L RBC (4.70 - 6.10 /CUMM) 2.83 L Hgb (14.0 - 18.0 G/DL) 9.0 L Hct (42 - 52 %) 26.8 L MCV (80.0 - 94.0 FL) 94.7 H MCH (27.0 - 31.0 PG) 31.8 H RDW (11.5 - 14.5 %) 16.3 H Plt Count (130 - 400 /CUMM) 87 L MPV (7.4 - 10.4 FL) 9.3 Gran % (42.2 - 75.2 %) 47.4 Lymphocytes % (20.5 - 51.1 %) 36.0 Monocytes % (1.7 - 9.3 %) 8.0 Eosinophils % (0 - 5 %) 8.0 H Basophils % (0.0 - 2.0 %) 0.6 Absolute Granulocytes (1.4 - 6.5 /CUMM) 1.5 Absolute Lymphocytes (1.2 - 3.4 /CUMM) 1.2 Absolute Monocytes (0.10 - 0.60 /CUMM) 0.3 Absolute Eosinophils (0.0 - 0.7 /CUMM) 0.3 Absolute Basophils (0.0 - 0.2 /CUMM) 0 PUBS MCHC (33.0 - 37.0 G/DL) 33.5 06/30 06/30 1824 1815 Chemistry Sodium (137 - 145 mmol/L) 136 L Potassium (3.5 - 5.1 mmol/L) 4.8 Chloride (98 - 107 mmol/L) 91 L Carbon Dioxide (22 - 30 mmol/L) 34 H Anion Gap (5 - 16) 11 BUN (9 - 20 mg/dL) 78 H Creatinine (0.7 - 1.2 mg/dL) 1.0 Estimated GFR (>60 ml/min) > 60 BUN/Creatinine Ratio (7 - 25 %) 78.0 H Glucose (65 - 99 mg/dL) 79 Lactic Acid (0.7 - 2.1 mmol/L) 1.1 Calcium (8.4 - 10.2 mg/dL) 10.0 Total Bilirubin (0.2 - 1.3 mg/dL) 0.5 AST (17 - 59 U/L) 58 ALT (21 - 72 U/L) 48 Alkaline Phosphatase (< 127 U/L) 97 Troponin I (<0.11 ng/ml) < 0.01 Total Protein (6.3 - 8.2 g/dL) 7.0 Albumin (3.5 - 5.0 g/dL) 3.5 Globulin (1.9 - 4.2 gm/dL) 3.5 Albumin/Globulin Ratio (1.1 - 2.2 %) 1.0 L Vitamin B12 (239 - 931 pg/mL) 826 Folate (2.76 - 20.0 ng/mL) > 20.0 H Hematology CBC w Diff NO MAN DIFF REQ WBC (4.8 - 10.8 /CUMM) 5.3 RBC (4.70 - 6.10 /CUMM) 3.55 L Hgb (14.0 - 18.0 G/DL) 11.2 L Hct (42 - 52 %) 33.3 L MCV (80.0 - 94.0 FL) 93.9 MCH (27.0 - 31.0 PG) 31.5 H RDW (11.5 - 14.5 %) 16.5 H Plt Count (130 - 400 /CUMM) 125 L MPV (7.4 - 10.4 FL) 10.4 Gran % (42.2 - 75.2 %) 61.5 Lymphocytes % (20.5 - 51.1 %) 23.8 Monocytes % (1.7 - 9.3 %) 8.5 Eosinophils % (0 - 5 %) 5.8 H Basophils % (0.0 - 2.0 %) 0.4 Absolute Granulocytes (1.4 - 6.5 /CUMM) 3.2 Absolute Lymphocytes (1.2 - 3.4 /CUMM) 1.2 Absolute Monocytes (0.10 - 0.60 /CUMM) 0.4 Absolute Eosinophils (0.0 - 0.7 /CUMM) 0.3 Absolute Basophils (0.0 - 0.2 /CUMM) 0 PUBS MCHC (33.0 - 37.0 G/DL) 33.6 Toxicology Urine Opiates Screen (>2000 NG/ML) < 100.00 Methadone Screen (>300 NG/ML) < 40 Barbiturate Screen (>200 NG/ML) < 60 Ur Phencyclidine Scrn (>25 NG/ML) < 6.00 Amphetamines Screen (>1000 NG/ML) < 100 U Benzodiazepines Scrn (>200 NG/ML) < 85 Urine Cocaine Screen (>300 NG/ML) < 50 Urine Cannabis Screen (>50 NG/ML) < 5.00 Urines Urine Color (YEL,AMB,STR) YEL Urine Clarity (CLEAR) CLDY H Urine pH (5.0 - 8.0) 8.5 H Ur Specific [place] (1.001 - 1.035) <= 1.005 Urine Protein (NEG,<30 MG/DL) 30 H Urine Ketones (NEG) NEG Urine Nitrite (NEG) NEG Urine Bilirubin (NEG) NEG Urine Urobilinogen (0.1 - 1.0 EU/dl) 0.2 Ur Leukocyte Esterase (NEG) LARGE H Ur Microscopic SEDIMENT EXAMINED Urine RBC (0 - 5 /HPF) 3-5 Urine WBC (0 - 2 /HPF) PACKD H Ur Epithelial Cells (NONE,FEW) MOD H Urine Crystals 3+ TRIP PHOS H Urine Hemoglobin (NEG) TRACE-INTACT H Urine Glucose (N MG/DL) NEG Microbiology Date/Time Procedure - Status Source Growth 07/01 44 Culture & Sensitivity - [facility] 07[facility]01 [facility] Surveillance Culture - RECD UPPER RESP 07/01 44 Surveillance Culture - RECD GI 06/30 193 Blood Culture - RECD BLOOD 06/30 1921 Blood Culture - RECD BLOOD 06/30 182 Urine Culture - RECD URINE ROUT Vital Signs Date Time Temp Pulse Resp B/P Pulse O2 O2 Flow FiO2 Ox Delivery Rate 07/01 0426 98 Room Air 07/01 0042 96.7 78 20 112/64 100 Room Air 07/01 0030 100 Room Air 06/30 2328 98.2 78 20 117/58 100 Room Air 06/30 2231 97.0 74 20 100/50 98 Room Air 06/30 2055 95.4 59 18 101/51 99 Room Air 06/30 2004 94.5 06/30 2003 94.2 56 18 106/53 100 Room Air 06/30 1903 67 22 95/44 96 Room Air 06/30 1830 96 Room Air Room Air 06/30 1751 94.3 06/30 1733 91.5 06/30 1726 88.0 88 14 133/79 99 Room Air Intake & Output 07/01 0800 07/01 0000 06/30 1600 Intake Total 483 1000 Output Total 1800 Balance -1317 1000 Intake, IV 363 1000 Intake, Oral 0 Intake, Tube 120 Irrigant Number 0 Bowel Movements Output, Urine 1800 Patient 127 lb 135 lb Weight Covering attending note. 36-year-old gentleman who has infantile autism with intellectual disability and also neuromuscular dysfunction with the history of some chronic suprapubic catheter admitted from the home with the with the change of mental condition with hypothymia. No details available per se. He also has a history of chronic feeding tube dysfunction with chronic feeding tube history of aspiration pneumonia and no cortical insufficiency hypertension seizures hypothyroidism anemia chronic kidney disease chronic constipation history of MRSA and VRE history of C. difficile. Milligrams and patient is nonverbal he is comfortable in bed. Skarda large left buttock decubitus ulcer about 1-1.5 cm wide with this and is deep. S1-S2 is normal Lungs shows air entry equal bilaterally Abdomen is soft nontender bowel sounds are present is a PICC tube and the suprapubic catheter. Extremities shows no pedal edema and no calf tenderness present. Labs EKG normal sinus rhythm CT scan of abdomen and pelvis chest shows lungs are clear abdomen shows a bilateral nonobstructive renal stones with mild hydronephrosis no evidence of pyelonephritis. No urate no ureteral calculus. Assessment Sepsis with hypothermia most likely urologic lower region with also history of for decubitus ulcer. (Blood cultures urine cultures Patient was started on IV vancomycin and ceftazidime. Apparent ID consult Obtain a wound consult. Continue with IV hydration [place] input and output Change of for suprapubic catheter And care of the suprapubic catheter. DVT prophylaxis Continue rest of the management was seizures and hypothyroidism. History of anemia Check vitamin B12 folic acid and 9 studies. Also check the stool for occult blood
[2016-07-01 08:00] VITALS: BP 104/51
--- NOTE | 2016-07-01 08:42 | PN- Resident CRCU ---
Subjective HPI/CRCU Issues: Sepsis 2/2 aspiration PNA vs decubitus ulcers vs UTI Learning diability hx of seizures 24 Hour Events: Patient seen and examined at [facility]. He is minimally verbal, history is much limited. He required bear hugger. Objective Vital Signs & I&O Last 8 Hrs of Vitals and I&O: Laboratory Tests 07/01 06/30 0610 2240 Chemistry Sodium (137 - 145 mmol/L) 142 Potassium (3.5 - 5.1 mmol/L) 4.5 Chloride (98 - 107 mmol/L) 104 Carbon Dioxide (22 - 30 mmol/L) 31 H Anion Gap (5 - 16) 7 BUN (9 - 20 mg/dL) 55 H Creatinine (0.7 - 1.2 mg/dL) 0.9 Estimated GFR (>60 ml/min) > 60 Glucose (65 - 99 mg/dL) 61 L Lactic Acid (0.7 - 2.1 mmol/L) 0.6 L Calcium (8.4 - 10.2 mg/dL) 9.3 Phosphorus (2.5 - 4.5 mg/dL) 3.5 Magnesium (1.6 - 2.3 mg/dL) 1.8 Total Bilirubin (0.2 - 1.3 mg/dL) 0.2 AST (17 - 59 U/L) 34 ALT (21 - 72 U/L) 39 Albumin (3.5 - 5.0 g/dL) 2.4 L Hematology CBC w Diff NO MAN DIFF REQ WBC (4.8 - 10.8 /CUMM) 3.2 L RBC (4.70 - 6.10 /CUMM) 2.83 L Hgb (14.0 - 18.0 G/DL) 9.0 L Hct (42 - 52 %) 26.8 L MCV (80.0 - 94.0 FL) 94.7 H MCH (27.0 - 31.0 PG) 31.8 H RDW (11.5 - 14.5 %) 16.3 H Plt Count (130 - 400 /CUMM) 87 L MPV (7.4 - 10.4 FL) 9.3 Gran % (42.2 - 75.2 %) 47.4 Lymphocytes % (20.5 - 51.1 %) 36.0 Monocytes % (1.7 - 9.3 %) 8.0 Eosinophils % (0 - 5 %) 8.0 H Basophils % (0.0 - 2.0 %) 0.6 Absolute Granulocytes (1.4 - 6.5 /CUMM) 1.5 Absolute Lymphocytes (1.2 - 3.4 /CUMM) 1.2 Absolute Monocytes (0.10 - 0.60 /CUMM) 0.3 Absolute Eosinophils (0.0 - 0.7 /CUMM) 0.3 Absolute Basophils (0.0 - 0.2 /CUMM) 0 PUBS MCHC (33.0 - 37.0 G/DL) 33.5 06/30 06/30 1824 1815 Chemistry Sodium (137 - 145 mmol/L) 136 L Potassium (3.5 - 5.1 mmol/L) 4.8 Chloride (98 - 107 mmol/L) 91 L Carbon Dioxide (22 - 30 mmol/L) 34 H Anion Gap (5 - 16) 11 BUN (9 - 20 mg/dL) 78 H Creatinine (0.7 - 1.2 mg/dL) 1.0 Estimated GFR (>60 ml/min) > 60 BUN/Creatinine Ratio (7 - 25 %) 78.0 H Glucose (65 - 99 mg/dL) 79 Lactic Acid (0.7 - 2.1 mmol/L) 1.1 Calcium (8.4 - 10.2 mg/dL) 10.0 Total Bilirubin (0.2 - 1.3 mg/dL) 0.5 AST (17 - 59 U/L) 58 ALT (21 - 72 U/L) 48 Alkaline Phosphatase (< 127 U/L) 97 Troponin I (<0.11 ng/ml) < 0.01 Total Protein (6.3 - 8.2 g/dL) 7.0 Albumin (3.5 - 5.0 g/dL) 3.5 Globulin (1.9 - 4.2 gm/dL) 3.5 Albumin/Globulin Ratio (1.1 - 2.2 %) 1.0 L Vitamin B12 (239 - 931 pg/mL) 826 Folate (2.76 - 20.0 ng/mL) > 20.0 H Hematology CBC w Diff NO MAN DIFF REQ WBC (4.8 - 10.8 /CUMM) 5.3 RBC (4.70 - 6.10 /CUMM) 3.55 L Hgb (14.0 - 18.0 G/DL) 11.2 L Hct (42 - 52 %) 33.3 L MCV (80.0 - 94.0 FL) 93.9 MCH (27.0 - 31.0 PG) 31.5 H RDW (11.5 - 14.5 %) 16.5 H Plt Count (130 - 400 /CUMM) 125 L MPV (7.4 - 10.4 FL) 10.4 Gran % (42.2 - 75.2 %) 61.5 Lymphocytes % (20.5 - 51.1 %) 23.8 Monocytes % (1.7 - 9.3 %) 8.5 Eosinophils % (0 - 5 %) 5.8 H Basophils % (0.0 - 2.0 %) 0.4 Absolute Granulocytes (1.4 - 6.5 /CUMM) 3.2 Absolute Lymphocytes (1.2 - 3.4 /CUMM) 1.2 Absolute Monocytes (0.10 - 0.60 /CUMM) 0.4 Absolute Eosinophils (0.0 - 0.7 /CUMM) 0.3 Absolute Basophils (0.0 - 0.2 /CUMM) 0 PUBS MCHC (33.0 - 37.0 G/DL) 33.6 Toxicology Urine Opiates Screen (>2000 NG/ML) < 100.00 Methadone Screen (>300 NG/ML) < 40 Barbiturate Screen (>200 NG/ML) < 60 Ur Phencyclidine Scrn (>25 NG/ML) < 6.00 Amphetamines Screen (>1000 NG/ML) < 100 U Benzodiazepines Scrn (>200 NG/ML) < 85 Urine Cocaine Screen (>300 NG/ML) < 50 Urine Cannabis Screen (>50 NG/ML) < 5.00 Urines Urine Color (YEL,AMB,STR) YEL Urine Clarity (CLEAR) CLDY H Urine pH (5.0 - 8.0) 8.5 H Ur Specific Satin (1.001 - 1.035) <= 1.005 Urine Protein (NEG,<30 MG/DL) 30 H Urine Ketones (NEG) NEG Urine Nitrite (NEG) NEG Urine Bilirubin (NEG) NEG Urine Urobilinogen (0.1 - 1.0 EU/dl) 0.2 Ur Leukocyte Esterase (NEG) LARGE H Ur Microscopic SEDIMENT EXAMINED Urine RBC (0 - 5 /HPF) 3-5 Urine WBC (0 - 2 /HPF) PACKD H Ur Epithelial Cells (NONE,FEW) MOD H Urine Crystals 3+ TRIP PHOS H Urine Hemoglobin (NEG) TRACE-INTACT H Urine Glucose (N MG/DL) NEG Exam General Appearance: awake Head: atraumatic, normal appearance Neck: supple Respiratory: normal breath sounds, chest non-tender, no respiratory distress, quiet respiration, lungs clear Cardiovascular: regular rate/rhythm Gastrointestinal: normal bowel sounds, soft, has a PEG tube in place Extremities: no edema, has stage IV decubitus ulcer located at left gluteal area - no purulent drainage per se. Cranial Nerves: PERRL Nutrition Nutrition: tube feeding Current Medications: Current Medications Sig/Judi Start time Last Medication Dose Route Stop Time Status Admin Acetaminophen 650 MG Q4H PRN 06/30 2330 AC PO Bisacodyl 10 MG DAILY PRN 06/30 2330 AC NE Ceftazidime 1,000 MG Q8H 07/01 0400 AC 07/01 IV 1124 Ceftazidime 1,000 MG IQ8 07/01 0000 DC IV Ceftazidime 0 .STK-MED ONE 06/30 1936 DC .ROUTE Ceftazidime 1,000 MG ONCE ONE 06/30 1745 DC 06/30 IV 06/30 1746 1936 Dextrose 25 GM ONCE ONE 07/01 0800 DC 07/01 IV 07/01 0801 0758 Dextrose/Sodium 1,000 ML .[id number] 06/30 2315 AC 07/01 Chloride IV 1127 Ferrous Sulfate 325 MG BID 07/01 1000 DC PO Ferrous Sulfate 300 MG BID 07/01 1000 AC 07/01 PO 1128 Lactobacillus 1 CAP TID 07/01 1000 AC 07/01 Acidophilus PO 1128 Levetiracetam 500 MG BID 07/01 1000 AC 07/01 G TUBE 1215 Levothyroxine Sodium 0.025 MG DAILY AC 07/01 0700 AC 07/01 PO 0759 Magnesium Hydroxide 30 ML DAILY PRN 07/01 0015 AC PO Magnesium Oxide 400 MG ONE ONE 07/01 1215 DC 07/01 PO 07/01 1216 1216 Magnesium Sulfate 1 GM ONCE ONE 07/01 1215 CAN Dextrose/Water 100 ML IV 07/01 1614 Melatonin 3 MG AT BEDTIME 07/01 2200 AC PO Omeprazole 20 MG DAILY 07/01 1000 AC 07/01 PO 1128 Risperidone 2 MG BID 07/01 1000 AC 07/01 PO 1215 Sodium Chloride 1,000 ML BOLUS ONE 06/30 1844 DC 06/30 IV 06/30 1943 2030 Sodium Chloride 1,000 ML BOLUS ONE 06/30 1745 DC 06/30 IV 06/30 Valproic Acid 1,000 MG Q8 07/01 0600 AC 07/01 PO 0758 Vancomycin HCl 1,000 MG DAILY 07/01 1000 AC 07/01 Sodium Chloride 250 ML IV 112 Vancomycin HCl 0 .STK-MED ONE 06/30 193 DC .ROUTE Vancomycin HCl 1,000 MG ONCE ONE 06/30 174 DC 06/30 Sodium Chloride 250 ML IV 06/30 Antibiotics Antibiotic: Vanc & Ceftaz Results Cultures: Culture: pending CT Scan Findings: SERVICE DATE: 06/30/16 EXAM TYPE: CAT - CT ABD & PELVIS W/O IV CONTRAS; CT CHEST WO IV CONTRAST EXAMINATION: CT CHEST, ABDOMEN AND PELVIS WITHOUT CONTRAST CLINICAL INFORMATION: Septic. Altered mental status. COMPARISON: None. TECHNIQUE: Multidetector volumetric CT images obtained through the chest abdomen pelvis without oral or IV contrast. Coronal and sagittal reformatted images are performed at the CT scanner DLP: 370.8 mGy-cm. FINDINGS: CT CHEST: Lungs: The lungs are clear with no evidence of inflammation or nodules. Mediastinum: The mediastinum is normal. Pleura: There is no pleural effusion. No pleural mass or thickening. Axilla: No lymphadenopathy. CT ABDOMEN AND PELVIS: LIVER, GALLBLADDER, AND BILIARY TREE: There are scattered calcified granuloma in the right and left lobe of liver. No focal suspicious liver lesion. No intrahepatic bile duct dilatation. The gallbladder is unremarkable with no evidence of radiopaque gallstones, gallbladder wall thickening, or obvious pericholecystic inflammatory changes. PANCREAS: No acute change of the pancreas. No mass. No pancreatic duct dilatation. SPLEEN: Spleen normal in size and contour. No focal lesion. ADRENAL GLANDS: Adrenal glands are normal in size. No focal mass. KIDNEYS AND URETERS: Mild dilatation of the collecting system of both kidneys to the ureterovesical junction. There are a few small nonobstructive stones in the right and left kidneys. No ureteral calculus. No edema around either kidney. Perinephric fat is normal. BLADDER: Suprapubic catheter in place. Bladder empty. GASTROINTESTINAL TRACT: Rectal catheter in place. Percutaneous gastrotomy tube. Tube in good position with no inflammation. No hernia at the abdominal wall No acute change of the bowel. No bowel obstruction. No bowel wall thickening or edema. Moderate volume of stool in the colon. The small bowel loops are unremarkable. The appendix is not seen. No inflammation of the mesentery. Bowel wall thickening or edema. MESENTERY: No focal inflammation. No free fluid. No free air. ABDOMINAL WALL: No significant hernia is appreciated. LYMPH NODES: Normal. VASCULAR: Unremarkable. PELVIC VISCERA: Unremarkable. OSSEOUS STRUCTURES: Degenerative change of the lumbar spine. Bilateral spondylolysis L5 pars interarticularis without spondylolysis. IMPRESSION: Percutaneous gastrotomy tube. Suprapubic catheter in bladder. Bilateral nonobstructive renal stones. Mild hydronephrosis of both kidneys which could be chronic. No ureteral calculus. Impression/Plan Impression/Problem List Impression: 36-year-old man with past medical history of intellectual disability, infantile autism, history of aspiration pneumonia, dysphagia with gastrostomy tube, neuromuscular dysfunction of bladder with suprapubic catheter, adrenocortical insufficiency, essential hypertension, seizures, hypothyroidism, anemia, chronic kidney disease, osteoarthritis, constipation, MRSA and VRE positive, history of C. difficile was sent into [facility] by PCP, Dr. Dodd because he was found to be hypothermic in his office. # Sepsis 2/2 urological origin, vs decubitus ulcer on left gluteal area vs aspiration PNA - Resolved after requiring one session of bear hugger - Spoke with Dr. Baker. - For now continue on Vanc and Ceftaz - F/U results of Urine and blood cultures - Maintain on Aspiration PNA - F/U ID recs. - F/U wound consult. #Normocytic anemia According to records from [facility] patient hemoglobin was 7.5 in April and he was transfused with 2 units of blood transfusion. - He is already on iron supplements. - Continue supplements. # History of seizure disorder - Continue Keppra and valproic acid via G tube # History of Hypothyroidism Will continue levothyroxine via G-tube F/U TSH - Alps for DVT prophylaxis because of thrombocytopenia. We'll monitor platelets count daily. No signs of active bleeding Code status - Full code Problem List: 1. UTI (urinary tract infection) 2. Sepsis Pain Ratin Tomorrow's Labs & Rationales: BEP, CBC - monitor thrombocytopenia, H&H Plan DVT/Prophylaxis: mechanical
--- NOTE | 2016-07-01 10:17 | NUR ---
DR REDI IN TO ASSESS PT AND DOWN GRADED TO GENERAL MEDICINE. PT RMAINS IN ICU AWAITING A GEN MED BED.
[2016-07-01 16:00] VITALS: BP 116/55
--- NOTE | 2016-07-01 23:00 | NUR ---
AT AROUND 2300PM, THIS AUTOMOTIVE DRIVABILITY TECHNICIAN ENTERED PATIENT'S ROOM TO SET UP TUBE FEED BOLUS. AT THIS TIME IT IS SEEN THAT PATIENT HAD JUST VOMITED A PALE PINK COLORED VOMIT OFF THE SIDE OF THE BED. PATIENT HAD JUST RECEIVED ALL MEDICATIONS VIA PEG TUBE A HALF HOUR PRIOR. VOMIT WAS GUIAC TESTED AND WAS NEGATIVE, AND PINK COLOR ATTRIBUTED TO THE DEPAKENE WHICH IS RED IN COLOR. DR. HARRIS IS NOTIFIED AND TUBE FEEDS ARE ON HOLD AT THIS TIME. NO S/S ASPIRATION BUT WILL CONT TO MONITOR.
[2016-07-01 23:11] VITALS: BP 114/74
--- NOTE | 2016-07-02 07:41 | PN- Att Addend ---
Attending Addendum Attending Brief Note Covering attending note. Patient is more awake alert. He is the nonverbal his usual self. Intake & Output 07/02 0000 07/01 1600 Intake Total 480 880 Output Total 900 750 Balance -420 130 Intake, IV 720 Intake, Tube 240 Feeding Intake, Tube 240 160 Irrigant Output, Urine 900 750 Patient 127 lb Weight Current Medications Sig/Judi Start time Last Medication Dose Route Stop Time Status Admin Acetaminophen 650 MG Q4H PRN 06/30 2330 AC PO Bisacodyl 10 MG DAILY PRN 06/30 2330 AC OK Ceftazidime 1,000 MG Q8H 07/01 0400 AC 07/02 IV 0351 Dextrose 25 GM ONCE ONE 07/01 799 DC 07/01 IV 07/01 0801 0758 Dextrose/Sodium 1,000 ML .[id number] 06/30 2315 DC 07/01 Chloride IV 1127 Ferrous Sulfate 325 MG BID 07/01 1000 DC PO Ferrous Sulfate 300 MG BID 07/01 1000 AC 07/01 PO 2204 Lactobacillus 1 CAP TID 07/01 1000 AC 07/01 Acidophilus PO 2204 Levetiracetam 500 MG BID 07/01 1000 AC 07/01 G TUBE 2204 Levothyroxine Sodium 0.025 MG DAILY AC 07/01 07 AC 07/02 PO 0633 Magnesium Hydroxide 30 ML DAILY PRN 07/01 0015 AC PO Magnesium Oxide 400 MG ONE ONE 07/01 1215 DC 07/01 PO 07/01 1216 1216 Magnesium Sulfate 1 GM ONCE ONE 07/01 1215 CAN Dextrose/Water 100 ML IV 07/01 1614 Melatonin 3 MG AT BEDTIME 07/01 220 AC 07/01 PO 2204 Omeprazole 20 MG DAILY 07/01 1000 AC 07/01 PO 1128 Risperidone 2 MG BID 07/01 1000 AC 07/01 PO 2205 Valproic Acid 1,000 MG Q8 07/01 06 AC 07/02 PO 0633 Vancomycin HCl 1,000 MG DAILY 07/01 1000 AC 07/01 Sodium Chloride 250 ML IV 1127 Vital Signs Date Time Temp Pulse Resp B/P Pulse O2 O2 Flow FiO2 Ox Delivery Rate 07/01 2310 98.1 72 14 114/74 99 Room Air 07/01 1600 Room Air 07/01 1600 98.9 70 20 116/55 96 Room Air 07/01 08 99 Room Air 07/01 799 97.3 81 19 104/51 99 Room Air Room Air Intake & Output 07/02 0000 07/01 1600 Intake Total 480 880 Output Total 900 750 Balance -420 130 Intake, IV 720 Intake, Tube 240 Feeding Intake, Tube 240 160 Irrigant Output, Urine 900 750 Patient 127 lb Weight Patient's urine shows gram-negative rods that the blood cultures are so far negative. We will DC antibiotics follow off antibiotics get an infectious disease consult.
[2016-07-02 09:30] VITALS: BP 114/57
[2016-07-02 10:02] LABS: ABSOLUTE BASOPHIL COUNT 0 /CUMM (0.0-0.2); ABSOLUTE EOSINOPHIL COUNT 0.1 /CUMM (0.0-0.7); ABSOLUTE GRANULOCYTE CT 3.8 /CUMM (1.4-6.5); ABSOLUTE LYMPH COUNT 0.4 /CUMM (1.2-3.4); ABSOLUTE MONOCYTE COUNT 1.1 /CUMM (0.10-0.60); BASOPHIL % 0.2 % (0.0-2.0); GRANULOCYTE % 70.8 % (42.2-75.2); HEMATOCRIT 28.2 % (42-52); MEAN CORPUSCULAR HGB 32.3 PG (27.0-31.0); MEAN CORPUSCULAR HGB CONC 34.3 G/DL (33.0-37.0); MEAN CORPUSCULAR VOLUME 94.3 FL (80.0-94.0); MEAN PLATELET VOLUME 10.9 FL (7.4-10.4); PLATELET COUNT 89 /CUMM (130-400); RBC DISTRIBUTION WIDTH 16.4 % (11.5-14.5); RED BLOOD CELL CT 2.99 /CUMM (4.70-6.10)
--- NOTE | 2016-07-02 10:03 | Cons- Infect Disease ---
General Information and HPI Consulting Request Date of Consult: 07/02/16 Requested By: DESIRE REID MD Reason for Consult: Hypothermia Source of Information: current chart Exam Limitations: unable to give history, clinical condition, physical impairment History of Present Illness: This is a 36-year-old man, resident of a jail, with infantile autism, with neuromuscular dysfunction, status post gastrostomy tube and suprapubic cystostomy, with a history of adrenal cortical insufficiency, though not on steroids prior to admission, chronic renal insufficiency and seizures, apparently hospitalized multiple times recently in [place], transferred to a new jail on the day prior to admission, admitted on June 30 after he was sent to the emergency room because of hypothermia in the doctor's office. On arrival his temperature was 88 but he was otherwise felt to be at his baseline. Laboratory data revealed a white blood cell count of 5000, H&H 11 and 33, platelets 125,000, BUN/creatinine 78 and 1.0, with normal liver enzymes. Urinalysis 3-5 RBC/packed WBCs. CT of the chest, abdomen and pelvis revealed bilateral nonobstructive renal stones, with mild hydronephrosis of both kidneys. He was placed on a bear hugger with normalization of his temperature. He was begun on Vancomycin and Ceftazidime and admitted to the ICU. He remained stable overnight and temperatures have remained normal since. He is unable to provide any history due to his underlying condition. Allergies/Medications Allergies: Coded Allergies: Penicillins (Severe, DIFFICULTY BREATHING 06/30/16) venom-honey bee (Severe, HIVES 06/30/16) Cephalosporins (UNKNOWN PER 06/30/16) NSAIDS (Non-Steroidal Anti-Inflamma (UNKNOWN PER 06/30/16) latex (UNKNOWN PER 06/30/16) shellfish derived (UNKNOWN PER 06/30/16) sulfamethoxazole (From BACTRIM) (UNKNOWN PER 06/30/16) trimethoprim (From BACTRIM) (UNKNOWN PER 06/30/16) Home Med List: Acetaminophen 325 MG TABLET 2 TAB G TUBE Q4H PRN PAIN/TEMP>100.5 (Reported) Acetaminophen (Acephen) 650 MG SUPP.RECT 1 SUPP FL Q4H PRN PAIN/TEMP>100.5 ( Reported) Bacitracin 500 UNIT/GRAM OINT...G. 1 KAITY TOP AD PRN ABRASIONS/LACERATIONS ( Reported) apply to affected area(s) Bisacodyl 10 MG SUPP.RECT 1 SUP RC DAILY PRN CONSTIPATION (Reported) Epinephrine (Epipen 2-Blayne) 0.3 MG/0.3 ML AUTO.INJCT 0.3 MG INJ AD PRN ANAPHYLAXIS (Reported) Ergocalciferol (Vitamin D2) (Vitamin D2) 50,000 UNIT CAPSULE 1 CAP G TUBE Q30D SUPPLEMENT (Reported) Ferrous Sulfate (Ferosul) 220 MG (44 MG IRON)/5 ML SOLUTION 7.4 ML G TUBE BID SUPPLEMENT (Reported) Ipratropium/Albuterol Sulfate (Iprat-Albut 0.5-3(2.5) MG/3 Ml) 0.5 MG-3 MG (2.5 MG BASE)/3 ML AMPUL.NEB 1 VIAL INH Q4H PRN COUGH/WHEEZING (Reported) Lactobacillus Acidophilus (Acidophilus) 1 EACH CAPSULE 1 CAP G TUBE TID PROBIOTIC (Reported) Levetiracetam (Keppra) 100 MG/ML SOLUTION 5 ML G TUBE BID SEIZURES (Reported) Levothyroxine Sodium 25 MCG TABLET 1 TAB G TUBE DAILY THYROID (Reported) Magnesium Hydroxide (Milk Of Magnesia) 400 MG/5 ML ORAL.SUSP 30 ML G TUBE DAILY CONSTIPATION (Reported) Melatonin 1 MG/ML LIQUID 3 ML G TUBE QHS SUPPLEMENT (Reported) Na Phos,M-B/Na Phos,Di-Ba (Fleet Enema) 19 GRAM-7 GRAM/118 ML ENEMA 1 E RC DAILY PRN CONSTIPATION (Reported) [NOVA SOURCE RENAL] 220 ML G TUBE 5XDAILY SUPPLEMENT (Reported) Omeprazole 20 MG CAPSULE.DR 1 CAP G TUBE DAILY GI (Reported) Risperidone (Risperidone Odt) 2 MG TAB.RAPDIS 1 TAB G TUBE BID UNKNOWN ( Reported) Valproic Acid (As Sodium Salt) (Valproic Acid) 250 MG/5 ML SOLUTION 20 ML G TUBE Q8H SEIZURES (Reported) Past History Travel History Traveled to [place] past 21 day No Medical History Blood Transfusion Hx: Yes Neurological: seizure, INTELLECTUAL DISABILITY INFANTILE AUTISM, neuromuscular dysfunction EENT: DYSPHAGIA Cardiovascular: ESSENTIAL HYPERTENSION Respiratory: ASPIRATION PNEUMONIA Gastrointestinal: constipation, GASTROSTOMY C-DIFF Renal: chronic kidney disease Musculoskeletal: osteoarthritis Endocrine: hypothyroidism, ADREDOCORTICAL INSUFF. Blood Disorders: anemia History of MRSA: Yes History of VRE: Yes History of CDIFF: No Isolation History: Contact Surgical History Surgical History: status post suprapubic cystostomy, status post gastrostomy Psychosocial History Where Do You Live? [facility] Who Do You Live With? jail Smoking Status: Unknown If Ever Smoked Functional Ability ADLs Needs Assist: dressing, eating, toileting, bathing. Ambulation: non-ambulatory IADLs Needs Assist: shopping, housework, finances, food prep, telephone, transportation, medication admin. Review of Systems Comments Unobtainable Exam & Diagnostic Data Last 24 Hrs of Vital Signs/I&O Vital Signs Date Time Temp Pulse Resp B/P Pulse O2 O2 Flow FiO2 Ox Delivery Rate 07/01 2311 98.1 72 14 114/74 99 Room Air 07/01 1600 Room Air 07/01 1600 98.9 70 20 116/55 96 Room Air Intake & Output 07/02 1600 07/02 0800 07/02 0000 Intake Total 60 480 Output Total 1100 900 Balance -1040 -420 Intake, IV Intake, Tube 60 240 Feeding Intake, Tube 240 Irrigant Number 1 Bowel Movements Output, Urine 1100 900 Physical Exam Other Physical Findings: He is awake and alert in no acute distress. He is afebrile. Skin reveals no rash. HEENT exam is negative. Neck is supple with no adenopathy. Lungs are clear. Heart regular rhythm with no murmur. Abdomen is soft, nontender with positive bowel sounds; gastrostomy in place with no inflammation at the site; suprapubic cystostomy in place with no inflammation at the site. Back no CVA tenderness; left ischial ulcer clean, with no erythema or drainage. Extremities no cyanosis, clubbing or edema. Neuro is without focality. Last 24 Hours of Lab Results: Laboratory Tests 07/02 0900 Chemistry Sodium Pending Potassium Pending Chloride Pending Carbon Dioxide Pending Anion Gap Pending BUN Pending Creatinine Pending BUN/Creatinine Ratio Pending Hematology CBC w Diff Pending WBC Pending RBC Pending Hgb Pending Hct Pending MCV Pending MCH Pending RDW Pending Plt Count Pending MPV Pending PUBS MCHC Pending Last 24 Hours of Kashif Results: Blood cultures June 30 negative Urine culture June 30 greater than 100,000 colonies of gram-negative rods, ID pending Diagnostic Data Recent Imaging Findings: CT of the chest, abdomen and pelvis June 30 bilateral nonobstructive renal stones, with mild hydronephrosis of both kidneys Assessment/Plan Assessment/Plan Impression: This is a 36-year-old man, resident of a jail, with a history of infantile autism, status post gastrostomy and suprapubic cystostomy, and a history of adrenal cortical insufficiency, not on steroids, with multiple recent hospitalizations reported, admitted on June 30 with hypothermia, treated empirically for sepsis, with apparent improvement. The possibility of sepsis must be considered, with the most likely source being the suprapubic catheter. The positive urine culture may well represent colonization, but, in the absence of any other obvious focus of infection, a urologic source must be considered. His left ischial ulcer does not appear to be infected and he has no evidence for pneumonia. A viral process, such as influenza, could be considered, particularly with his leukopenia and thrombocytopenia, but he appears to be pancytopenic, and this may warrant further evaluation. Also noted are increased eosinophils on his admission differential and a markedly elevated BUN. Suggestion: 1. Would obtain medical records from his recent hospitalizations to review his previous laboratory data and cultures 2. Follow-up final cultures 3. Discontinue Vancomycin 4. Continue Ceftazidime pending above Consult Acknowledgment - Thank you for your consult request.
[2016-07-02 10:04] LABS: WHITE BLOOD CELL COUNT 5.4 /CUMM (4.8-10.8)
--- NOTE | 2016-07-02 12:01 | Cons- General Surgery ---
General Information and HPI Consulting Request Date of Consult: 07/02/16 Requested By: DESIRE REID MD Reason for Consult: Decubitus ulcer History of Present Illness: Asked to see patient with pre-existing initial tuberosity pressure ulcer. Patient was admitted for likely urosepsis. 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 He has a suprapubic tube and gastrostomy tube. Apparently patient had prior initial tuberosity pressure ulcer and treatment was initiated. I was consulted as to any changes to his cares or need for surgical intervention. Allergies/Medications Allergies: Coded Allergies: Penicillins (Severe, DIFFICULTY BREATHING 06/30/16) venom-honey bee (Severe, HIVES 06/30/16) Cephalosporins (UNKNOWN PER 06/30/16) NSAIDS (Non-Steroidal Anti-Inflamma (UNKNOWN PER 06/30/16) latex (UNKNOWN PER 06/30/16) shellfish derived (UNKNOWN PER 06/30/16) sulfamethoxazole (From BACTRIM) (UNKNOWN PER 06/30/16) trimethoprim (From BACTRIM) (UNKNOWN PER 06/30/16) Home Med List: Acetaminophen 325 MG TABLET 2 TAB G TUBE Q4H PRN PAIN/TEMP>100.5 (Reported) Acetaminophen (Acephen) 650 MG SUPP.RECT 1 SUPP MS Q4H PRN PAIN/TEMP>100.5 ( Reported) Bacitracin 500 UNIT/GRAM OINT...G. 1 KAITY TOP AD PRN ABRASIONS/LACERATIONS ( Reported) apply to affected area(s) Bisacodyl 10 MG SUPP.RECT 1 SUP RC DAILY PRN CONSTIPATION (Reported) Epinephrine (Epipen 2-Blayne) 0.3 MG/0.3 ML AUTO.INJCT 0.3 MG INJ AD PRN ANAPHYLAXIS (Reported) Ergocalciferol (Vitamin D2) (Vitamin D2) 50,000 UNIT CAPSULE 1 CAP G TUBE Q30D SUPPLEMENT (Reported) Ferrous Sulfate (Ferosul) 220 MG (44 MG IRON)/5 ML SOLUTION 7.4 ML G TUBE BID SUPPLEMENT (Reported) Ipratropium/Albuterol Sulfate (Iprat-Albut 0.5-3(2.5) MG/3 Ml) 0.5 MG-3 MG (2.5 MG BASE)/3 ML AMPUL.NEB 1 VIAL INH Q4H PRN COUGH/WHEEZING (Reported) Lactobacillus Acidophilus (Acidophilus) 1 EACH CAPSULE 1 CAP G TUBE TID PROBIOTIC (Reported) Levetiracetam (Keppra) 100 MG/ML SOLUTION 5 ML G TUBE BID SEIZURES (Reported) Levothyroxine Sodium 25 MCG TABLET 1 TAB G TUBE DAILY THYROID (Reported) Magnesium Hydroxide (Milk Of Magnesia) 400 MG/5 ML ORAL.SUSP 30 ML G TUBE DAILY CONSTIPATION (Reported) Melatonin 1 MG/ML LIQUID 3 ML G TUBE QHS SUPPLEMENT (Reported) Na Phos,M-B/Na Phos,Di-Ba (Fleet Enema) 19 GRAM-7 GRAM/118 ML ENEMA 1 E RC DAILY PRN CONSTIPATION (Reported) [NOVA SOURCE RENAL] 220 ML G TUBE 5XDAILY SUPPLEMENT (Reported) Omeprazole 20 MG CAPSULE.DR 1 CAP G TUBE DAILY GI (Reported) Risperidone (Risperidone Odt) 2 MG TAB.RAPDIS 1 TAB G TUBE BID UNKNOWN ( Reported) Valproic Acid (As Sodium Salt) (Valproic Acid) 250 MG/5 ML SOLUTION 20 ML G TUBE Q8H SEIZURES (Reported) Current Medications: Current Medications Sig/Judi Start time Last Medication Dose Route Stop Time Status Admin Acetaminophen 650 MG Q4H PRN 06/30 2330 AC PO Bisacodyl 10 MG DAILY PRN 06/30 2330 AC MS Ceftazidime 1,000 MG Q8H 07/01 0400 AC 07/02 IV 0351 Dextrose/Sodium 1,000 ML .[id number] 06/30 2315 DC 07/01 Chloride IV 1127 Ferrous Sulfate 300 MG BID 07/01 1000 AC 07/02 PO 0849 Lactobacillus 1 CAP TID 07/01 1000 AC 07/02 Acidophilus PO 0849 Levetiracetam 500 MG BID 07/01 1000 AC 07/02 G TUBE 0849 Levothyroxine Sodium 0.025 MG DAILY AC 07/01 0700 AC 07/02 PO 0633 Magnesium Hydroxide 30 ML DAILY PRN 07/01 0015 AC PO Magnesium Oxide 400 MG ONE ONE 07/01 1215 DC 07/01 PO 07/01 1216 1216 Magnesium Sulfate 1 GM ONCE ONE 07/01 1215 CAN Dextrose/Water 100 ML IV 07/01 1614 Melatonin 3 MG AT BEDTIME 07/01 2200 AC 07/01 PO 2204 Omeprazole 20 MG DAILY 07/01 1000 AC 07/02 PO 0848 Risperidone 2 MG BID 07/01 1000 AC 07/02 PO 0849 Valproic Acid 1,000 MG Q8 07/01 0600 AC 07/02 PO 0633 Vancomycin HCl 1,000 MG DAILY 07/01 1000 AC 07/02 Sodium Chloride 250 ML IV 0902 Past History Medical History Blood Transfusion Hx: Yes Neurological: seizure, INTELLECTUAL DISABILITY INFANTILE AUTISM neuromuscular dysfunction EENT: DYSPHAGIA Cardiovascular: ESSENTIAL HYPERTENSION Respiratory: ASPIRATION PNEUMONIA Gastrointestinal: constipation, GASTROSTOMY C-DIFF Renal: chronic kidney disease Musculoskeletal: osteoarthritis Endocrine: hypothyroidism, ADREDOCORTICAL INSUFF. Blood Disorders: anemia Surgical History Pertinent Surgical History: suprapubic cystostomy status post gastrostomy, gastrostomy tube Psychosocial History Where Do You Live? [facility] Who Do You Live With? [facility] Smoking Status: Unknown If Ever Smoked Functional Ability ADLs Needs Assist: dressing, eating, toileting, bathing. Ambulation: non-ambulatory IADLs Needs Assist: shopping, housework, finances, food prep, telephone, transportation, medication admin. Review of Systems Review of Systems: Unobtainable Exam & Diagnostic Data Vital Signs and I&O Vital Signs Date Time Temp Pulse Resp B/P Pulse O2 O2 Flow FiO2 Ox Delivery Rate 07/02 929 98.5 94 18 114/57 97 Room Air Room Air 07/01 2311 98.1 72 14 114/74 99 Room Air 07/01 1600 Room Air 07/01 1600 98.9 70 20 116/55 96 Room Air Intake & Output 07/02 1600 07/02 0807/02 0000 07/01 1600 07/01 0807/01 0000 Intake Total 60 480 385 942 8206 Output Total 1100 509 343 2282 Balance -1040 -420 130 -1317 1000 Intake, IV 707 989 1632 Intake, Oral 0 Intake, Tube 60 240 Feeding Intake, Tube 240 160 120 Irrigant Number 1 0 Bowel Movements Output, Urine 1100 492 822 5230 Patient 127 lb 127 lb 135 lb Weight Physical Exam: Gen. he is in no distress. Nonverbal, responsive to verbal stimuli. Normal body habitus. HEENT: Missing teeth. Moist mucosal membranes. No ulcers. Rojelio. Abdomen: Soft nontender nondistended. No hernias. Gastrostomy tube in the epigastric region and suprapubic tube in the suprapubic region. No cellulitis around the sites. Extremities. No cyanosis clubbing or edema Left ischial area with 4 mm open wound with healthy granulation. There is near- complete epithelialization. There is no necrosis, purulence or tenderness. Last 24 Hours of Labs: Laboratory Tests 07/02 0900 Chemistry Sodium (137 - 145 mmol/L) 146 H Potassium (3.5 - 5.1 mmol/L) 4.3 Chloride (98 - 107 mmol/L) 105 Carbon Dioxide (22 - 30 mmol/L) 29 Anion Gap (5 - 16) 12 BUN (9 - 20 mg/dL) 37 H Creatinine (0.7 - 1.2 mg/dL) 0.9 Estimated GFR (>60 ml/min) > 60 BUN/Creatinine Ratio (7 - 25 %) 41.1 H Hematology CBC w Diff NO MAN DIFF REQ WBC (4.8 - 10.8 /CUMM) 5.4 RBC (4.70 - 6.10 /CUMM) 2.99 L Hgb (14.0 - 18.0 G/DL) 9.7 L Hct (42 - 52 %) 28.2 L MCV (80.0 - 94.0 FL) 94.3 H MCH (27.0 - 31.0 PG) 32.3 H RDW (11.5 - 14.5 %) 16.4 H Plt Count (130 - 400 /CUMM) 89 L MPV (7.4 - 10.4 FL) 10.9 H Gran % (42.2 - 75.2 %) 70.8 Lymphocytes % (20.5 - 51.1 %) 8.2 L Monocytes % (1.7 - 9.3 %) 19.8 H Eosinophils % (0 - 5 %) 1.0 Basophils % (0.0 - 2.0 %) 0.2 Absolute Granulocytes (1.4 - 6.5 /CUMM) 3.8 Absolute Lymphocytes (1.2 - 3.4 /CUMM) 0.4 L Absolute Monocytes (0.10 - 0.60 /CUMM) 1.1 H Absolute Eosinophils (0.0 - 0.7 /CUMM) 0.1 Absolute Basophils (0.0 - 0.2 /CUMM) 0 PUBS MCHC (33.0 - 37.0 G/DL) 34.3 Assessment/Plan Assessment/Plan Healing left ischial tuberosity pressure ulcer. There is no need for surgical intervention. The wound is nearly healed and within the next 2 weeks dressing changes will not longer be necessary. I do not recommend any changes to his current regimen of care. Problem List: 1. Decubitus ulcer of left ischial area Consult Acknowledgment - Thank you for your consult request.
[2016-07-02 16:00] VITALS: BP 90/50
[2016-07-03 08:26] VITALS: BP 126/66
--- NOTE | 2016-07-03 09:15 | NUR ---
0908 RECTAL TEMP 94.2. PT DOESN'T FEEL COOL TO TOUCH. BLANKETS REAPPLIED BUT PT KEEPS KICKING THEM OFF. 0910 BASHIR CLALEJAS AWARE. WILL CONTINUE TO MONITOR.
--- NOTE | 2016-07-03 09:31 | PN- Housestaff ---
Subjective Follow-up For: Sepsis 2/2 aspiration PNA vs decubitus ulcers vs UTI Learning diability hx of seizures Complaints: pain scale (0-10) Tele-Events Since Last Visit: Normal sinus rhythm Subjective: Patient seen and examined at [facility]. He is minimally verbal, history is much limited. He required bear hugger and transferred to ICU around 12pm. Review of Systems Constitutional: Denies: see HPI. Objective Last 24 Hrs of Vital Signs/I&O Vital Signs Date Time Temp Pulse Resp B/P Pulse O2 O2 Flow FiO2 Ox Delivery Rate 07/03 1150 93.7 07/03 899 94.2 07/03 825 57 18 126/66 98 Room Air 07/03 08 Room Air Intake & Output 07/03 1600 07/03 0000 Intake Total 360 360 160 Output Total 500 650 500 Balance -140 -290 -340 Intake, Tube 160 200 80 Feeding Intake, Tube 200 160 80 Irrigant Output, Urine 500 650 500 Patient 57.408 kg Weight Physical Exam General Appearance: Alert HEENT: Atraumatic, Mucous Membr. moist/pink Neck: Supple, No JVD Lymphatic: Cervical nl Cardiovascular: Regular Rate, Normal S1, Normal S2 Lungs: Normal Air Movement Abdomen: Normal Bowel Sounds, Soft, No Tenderness, peg tube in place Extremities: No Edema Vascular: Normal Pulses Current Medications: Current Medications Sig/Judi Start time Last Medication Dose Route Stop Time Status Admin Acetaminophen 650 MG Q4H PRN 06/30 2330 AC PO Bisacodyl 10 MG DAILY PRN 06/30 2330 AC [place] Ceftazidime 1,000 MG Q8H 07/01 0400 DC 07/03 IV 1117 Ferrous Sulfate 300 MG BID 07/01 1000 AC 07/03 PO 1059 Lactobacillus 1 CAP TID 07/01 1000 AC 07/03 Acidophilus PO 1609 Levetiracetam 500 MG BID 07/01 1000 AC 07/03 G TUBE 1100 Levothyroxine Sodium 0.025 MG DAILY AC 07/01 07 AC 07/03 PO 0700 Magnesium Hydroxide 30 ML DAILY PRN 07/01 0015 AC PO Melatonin 3 MG AT BEDTIME 07/01 2200 AC 07/02 PO 2300 Omeprazole 20 MG DAILY 07/01 1000 AC 07/03 PO 1100 Risperidone 2 MG BID 07/01 1000 AC 07/03 PO 1100 Valproic Acid 1,000 MG Q8 07/01 0600 AC 07/03 PO 1459 Last 24 Hrs of Lab/Kashif Results Last 24 Hrs of Labs/Mics: Laboratory Tests 07/03/16 1550: CBC w Diff NO MAN DIFF REQ, RBC 2.87 L, MCV 95.3 H, MCH 32.0 H, RDW 16.6 H, MPV 9.9, Gran % 72.5, Lymphocytes % 18.3 L, Monocytes % 5.2, Eosinophils % 3.7, Basophils % 0.3, Absolute Granulocytes 3.8, Absolute Lymphocytes 1.0 L, Absolute Monocytes 0.3, Absolute Eosinophils 0.2, Absolute Basophils 0, PUBS MCHC 33.6 Assessment/Plan Assessment: 36-year-old man with past medical history of intellectual disability, infantile autism, history of aspiration pneumonia, dysphagia with gastrostomy tube, neuromuscular dysfunction of bladder with suprapubic catheter, adrenocortical insufficiency, essential hypertension, seizures, hypothyroidism, anemia, chronic kidney disease, osteoarthritis, constipation, MRSA and VRE positive, history of C. difficile was sent into [facility] by PCP, Dr. Dodd because he was found to be hypothermic in his office. # Sepsis 2/2 urological origin, vs decubitus ulcer on left gluteal area vs aspiration PNA he was sent to the hospital by Dr. Dodd for hypothermia. He was initially admitted in ICU for hypothermia and received jaymie hugger. He was transferred to telemetry floor once his temperature was normal. Urine analysis was positive and urine cultures showed gram-negative rods- Escherichia coli and Proteus sensitive to meropenem and ticarcillin clavulanic acid. Kevin Baker MD was consulted. Recommended to watch patient off from antibiotics now. Discontinued-vancomycin and ceftriaxone. * Again transferred to ICU as he was hypothermic with a rectal temperature 93. * General surgeon on board- * Healing left ischial tuberosity pressure ulcer. * There is no need for surgical intervention. * Aspiration pneumonia was ruled out. #Normocytic anemia [facility] patient hemoglobin was 7.5 in April and he was transfused with 2 units of blood transfusion. - He is already on iron supplements. - Continue supplements. # History of seizure disorder - Continue Keppra and valproic acid via G tube # History of Hypothyroidism Will continue levothyroxine via G-tube F/U TSH - Alps for DVT prophylaxis because of thrombocytopenia. We'll monitor platelets count daily. No signs of active bleeding Code status - Full code Problem List: 1. Decubitus ulcer of left ischial area 2. Sepsis 3. UTI (urinary tract infection) 4. Hypothermia Pain Ratin Pain Location: none Pain Goal: Remain pain free Pain Plan: tylinol Tomorrow's Labs & Rationales: cbc and bep Consulting Request: Consulting Specialty: Infectious Disease
--- NOTE | 2016-07-03 11:03 | PN- Att Addend ---
Attending Addendum Attending Brief Note Events over the weekend noted. Today is awake [id number] is more agitated, his nonverbal. His last temp was 96.2, his white count is low. His blood cultures are negative so far. Results of the urine culture are noted. Will check with Kevin Baker MD regarding the need or what antibiotics he would need Current Medications Sig/Judi Start time Last Medication Dose Route Stop Time Status Admin Acetaminophen 650 MG Q4H PRN 06/30 2330 AC PO Bisacodyl 10 MG DAILY PRN 06/30 2330 AC [place] Ceftazidime 1,000 MG Q8H 07/01 0400 AC 07/03 IV 0400 Ferrous Sulfate 300 MG BID 07/01 1000 AC 07/02 PO 2200 Lactobacillus 1 CAP TID 07/01 1000 AC 07/02 Acidophilus PO 2300 Levetiracetam 500 MG BID 07/01 1000 AC 07/02 G TUBE 2259 Levothyroxine Sodium 0.025 MG DAILY AC 07/01 0700 AC 07/03 PO 0700 Magnesium Hydroxide 30 ML DAILY PRN 07/01 0015 AC PO Melatonin 3 MG AT BEDTIME 07/01 2200 AC 07/02 PO 2300 Omeprazole 20 MG DAILY 07/01 1000 AC 07/02 PO 0848 Risperidone 2 MG BID 07/01 1000 AC 07/02 PO 2301 Valproic Acid 1,000 MG Q8 07/01 0600 AC 07/03 PO 0600 Vancomycin HCl 1,000 MG DAILY 07/01 1000 DC 07/02 Sodium Chloride 250 ML IV 0902 Laboratory Tests 07/02/16 0900: Anion Gap 12, Estimated GFR > 60, BUN/Creatinine Ratio 41.1 H, CBC w Diff NO MAN DIFF REQ, RBC 2.99 L, MCV 94.3 H, MCH 32.3 H, RDW 16.4 H, MPV 10.9 H, Gran % 70.8, Lymphocytes % 8.2 L, Monocytes % 19.8 H, Eosinophils % 1.0, Basophils % 0.2, Absolute Granulocytes 3.8, Absolute Lymphocytes 0.4 L, Absolute Monocytes 1.1 H, Absolute Eosinophils 0.1, Absolute Basophils 0, PUBS MCHC 34.3 07/01/16 0610: Anion Gap 7, Estimated GFR > 60, Glucose 61 L, Calcium 9.3, Phosphorus 3.5, Magnesium 1.8, Total Bilirubin 0.2, AST 34, ALT 39, Albumin 2.4 L, TSH 1.150, CBC w Diff NO MAN DIFF REQ, RBC 2.83 L, MCV 94.7 H, MCH 31.8 H, RDW 16.3 H, MPV 9.3, Gran % 47.4, Lymphocytes % 36.0, Monocytes % 8.0, Eosinophils % 8.0 H, Basophils % 0.6, Absolute Granulocytes 1.5, Absolute Lymphocytes 1.2, Absolute Monocytes 0.3, Absolute Eosinophils 0.3, Absolute Basophils 0, PUBS MCHC 33.5 06/30/16 2240: Lactic Acid 0.6 L 06/30/16 1824: Urine Opiates Screen < 100.00, Methadone Screen < 40, Barbiturate Screen < 60, Ur Phencyclidine Scrn < 6.00, Amphetamines Screen < 100, U Benzodiazepines Scrn < 85, Urine Cocaine Screen < 50, Urine Cannabis Screen < 5.00, Urine Color YEL, Urine Clarity CLDY H, Urine pH 8.5 H, Ur Specific Dwight <= 1.005, Urine Protein 30 H, Urine Ketones NEG, Urine Nitrite NEG, Urine Bilirubin NEG, Urine Urobilinogen 0.2, Ur Leukocyte Esterase LARGE H, Ur Microscopic SEDIMENT EXAMINED, Urine RBC 3-5, Urine WBC PACKD H, Ur Epithelial Cells MOD H, Urine Crystals 3+ TRIP PHOS H, Urine Hemoglobin TRACE-INTACT H, Urine Glucose NEG 06/30/16 1815: Anion Gap 11, Estimated GFR > 60, BUN/Creatinine Ratio 78.0 H, Glucose 79, Lactic Acid 1.1, Calcium 10.0, Total Bilirubin 0.5, AST 58, ALT 48, Alkaline Phosphatase 97, Troponin I < 0.01, Total Protein 7.0, Albumin 3.5, Globulin 3.5, Albumin/Globulin Ratio 1.0 L, Vitamin B12 826, Folate > 20.0 H, CBC w Diff NO MAN DIFF REQ, RBC 3.55 L, MCV 93.9, MCH 31.5 H, RDW 16.5 H, MPV 10.4, Gran % 61.5, Lymphocytes % 23.8, Monocytes % 8.5, Eosinophils % 5.8 H, Basophils % 0.4 , Absolute Granulocytes 3.2, Absolute Lymphocytes 1.2, Absolute Monocytes 0.4, Absolute Eosinophils 0.3, Absolute Basophils 0, PUBS MCHC 33.6 Microbiology 07/01 44 EXTREMITIE: Culture & Sensitivity - COMP PROTEUS MIRABILIS DIPHTHEROIDS 07/01 44 EXTREMITIE: Gram Stain - COMP 07/01 44 UPPER RESP: Surveillance Culture - COMP 07/01 44 GI: Surveillance Culture - COMP 06/30 1929 BLOOD: Blood Culture - RES 06/30 1921 BLOOD: Blood Culture - RES 06/30 1823 URINE ROUT: Urine Culture - COMP ESCHERICHIA COLI ESBL PROTEUS MIRABILIS Microbiology 07/01 44 EXTREMITIE: Culture & Sensitivity - COMP PROTEUS MIRABILIS DIPHTHEROIDS 07/01 44 EXTREMITIE: Gram Stain - COMP 07/01 44 UPPER RESP: Surveillance Culture - COMP 07/01 44 GI: Surveillance Culture - COMP 06/30 1929 BLOOD: Blood Culture - RES 06/30 1921 BLOOD: Blood Culture - RES 06/30 1823 URINE ROUT: Urine Culture - COMP ESCHERICHIA COLI ESBL PROTEUS MIRABILIS Vital Signs Date Time Temp Pulse Resp B/P Pulse O2 O2 Flow FiO2 Ox Delivery Rate 07/03 0826 57 18 126/66 98 Room Air 07/02 1600 96.2 52 15 90/50 97 Room Air Intake & Output 07/03 1600 07/03 0800 07/03 0000 Intake Total 360 160 Output Total 650 500 Balance -290 -340 Intake, Tube 200 80 Feeding Intake, Tube 160 80 Irrigant Output, Urine 650 500 Patient 127 lb Weight WBCs 5.4 today.
--- NOTE | 2016-07-03 15:51 | Event Note ---
Event Note Event Note: Spoke with about Urine culture - positive for ESBL E.Coli which is only sensitive for Ticarcillin clavulanate and meropenem. He informed to discontinue ceftazidime (which was the only antibiotic patient currently taking) . Currently we are watching the patient off the antibiotics.
[2016-07-03 16:00] VITALS: BP 140/70
[2016-07-03 16:10] LABS: ABSOLUTE BASOPHIL COUNT 0 /CUMM (0.0-0.2); ABSOLUTE EOSINOPHIL COUNT 0.2 /CUMM (0.0-0.7); ABSOLUTE GRANULOCYTE CT 3.8 /CUMM (1.4-6.5); ABSOLUTE MONOCYTE COUNT 0.3 /CUMM (0.10-0.60); BASOPHIL % 0.3 % (0.0-2.0); EOSINOPHIL % 3.7 % (0-5); GRANULOCYTE % 72.5 % (42.2-75.2); HEMATOCRIT 27.3 % (42-52); MEAN CORPUSCULAR HGB CONC 33.6 G/DL (33.0-37.0); MEAN CORPUSCULAR VOLUME 95.3 FL (80.0-94.0); MEAN PLATELET VOLUME 9.9 FL (7.4-10.4); RBC DISTRIBUTION WIDTH 16.6 % (11.5-14.5); RED BLOOD CELL CT 2.87 /CUMM (4.70-6.10); WHITE BLOOD CELL COUNT 5.3 /CUMM (4.8-10.8)
[2016-07-03 16:15] LABS: PLATELET COUNT 86 /CUMM (130-400)
--- NOTE | 2016-07-03 16:57 | Event Note ---
Event Note Event Note: Around 11am- Patient was found to be hypothermic with a rectal temperature [address] Yousif levi, attending physician. Recommended transfer to ICU for Michael barr.
--- NOTE | 2016-07-03 21:24 | NUR ---
PATIENT TEMP 98.1 RECTAL. MD NOTIFIED AND BEARHUGGER DISCONTINUED. PATIENT RESTING COMFORTABLY.
[2016-07-04] VITALS: BP 130/60
--- NOTE | 2016-07-04 00:59 | NUR ---
PT AWAKE,NON VERBAL. SOFT BILATERAL WRIST RESTRAINTS ON TO PREVENT PT FROM PULLING OUT HEPLOCK. ALEXA ON TO PREVENT PT FROM GETTING OOB. LUNGS SOUND CLEAR, SATURATION 100% ON RA. TOLERATING TF OF FS NEPRO AT 56ML/H, 200ML WATER FLUSHES Q4H. ON ISOLATION FOR ESBL IN URINE. SUPRAPUBIC TUBE IN PLACE, URINE YELLOW.
[2016-07-04 04:58] LABS: ABSOLUTE BASOPHIL COUNT 0 /CUMM (0.0-0.2); ABSOLUTE EOSINOPHIL COUNT 0.3 /CUMM (0.0-0.7); ABSOLUTE GRANULOCYTE CT 3.3 /CUMM (1.4-6.5); ABSOLUTE LYMPH COUNT 1.1 /CUMM (1.2-3.4); ABSOLUTE MONOCYTE COUNT 0.2 /CUMM (0.10-0.60); BASOPHIL % 0.3 % (0.0-2.0); EOSINOPHIL % 5.7 % (0-5); GRANULOCYTE % 66.9 % (42.2-75.2); HEMATOCRIT 30.1 % (42-52); MEAN CORPUSCULAR HGB 31.9 PG (27.0-31.0); MEAN CORPUSCULAR HGB CONC 33.5 G/DL (33.0-37.0); MEAN CORPUSCULAR VOLUME 95.4 FL (80.0-94.0); PLATELET COUNT 101 /CUMM (130-400); RBC DISTRIBUTION WIDTH 16.9 % (11.5-14.5); RED BLOOD CELL CT 3.16 /CUMM (4.70-6.10); WHITE BLOOD CELL COUNT 4.9 /CUMM (4.8-10.8)
--- NOTE | 2016-07-04 10:13 | PN- Resident CRCU ---
Subjective HPI/CRCU Issues: 1. Hypothermia - resolved 2. ESBL E.coli positive urine cultures. 3. Learning disability 4. History of seizures. 24 Hour Events: I saw and examined the patient in the morining. He is lying on bed, uncomfortable. He want to move around the ICU which was eventually done by the nursing staff. He persistently shouts to stay in the room. Still on tube feeds. Objective Vital Signs & I&O Last 8 Hrs of Vitals and I&O: VS Temparature of 98 this am - no more hypothermic HR 70's BP- 100-110/60-70mmHg On room air Exam General Appearance: alert, awake, comfortable, mild distress, thin Head: atraumatic, normal appearance Ears, Nose, Throat: normal pharynx, normal ENT inspection Neck: normal inspection, supple Respiratory: chest non-tender, no respiratory distress Cardiovascular: regular rate/rhythm, normal peripheral pulses Gastrointestinal: normal bowel sounds, soft, non-tender, peg tube in place Extremities: normal inspection, normal capillary refill Nutrition Nutrition: tube feeding Current Medications: Current Medications Sig/Judi Start time Last Medication Dose Route Stop Time Status Admin Acetaminophen 650 MG Q4H PRN 06/30 2330 AC 07/04 PO 1416 Bisacodyl 10 MG DAILY PRN 06/30 2330 AC ID Ferrous Sulfate 300 MG BID 07/01 1000 AC 07/04 PO 0855 Lactobacillus 1 CAP TID 07/01 1000 AC 07/04 Acidophilus PO 0855 Levetiracetam 500 MG BID 07/01 1000 AC 07/04 G TUBE 0855 Levothyroxine Sodium 0.025 MG DAILY AC 07/01 0700 AC 07/04 PO 0658 Magnesium Hydroxide 30 ML DAILY PRN 07/01 0015 AC PO Melatonin 3 MG AT BEDTIME 07/01 2200 AC 07/03 PO 2210 Omeprazole 20 MG DAILY 07/01 1000 AC 07/04 PO 0855 Risperidone 2 MG BID 07/01 1000 AC 07/04 PO 0855 Sodium Chloride 2 SPRAY Q4P PRN 07/03 1815 DC DONNY Valproic Acid 1,000 MG Q8 07/01 0600 AC 07/04 PO 1421 Antibiotics Antibiotics? none Impression/Plan Impression/Problem List Impression: 36-year-old man with past medical history of intellectual disability, infantile autism, history of aspiration pneumonia, dysphagia with gastrostomy tube, neuromuscular dysfunction of bladder with suprapubic catheter, adrenocortical insufficiency, essential hypertension, seizures, hypothyroidism, anemia, chronic kidney disease, osteoarthritis, constipation, MRSA and VRE positive, history of C. difficile was sent into [facility] by PCP, Dr. Dodd because he was found to be hypothermic in his office. He was initially placed in telemetry and transfered to ICU during weekend for Michael hugger. Eventually transfered to floor as stabilized. He developed hypothermia again on sunday07/03/16, transfered to ICU again for michael hugger. Problem List: 1. Hypothermia 2. Decubitus ulcer of left ischial area 3. ESBL E. coli carrier Pain Ratin Tomorrow's Labs & Rationales: ICU bundle cbc Plan Respiratory: On room air Stable. Infectious Diseases: ESBL E.Coli and proteus mirabilis in urinary cultures * Cultures are positive, not having any spikes in fever/white count. * 2 episodes of hypothermia so far * Initially started on IV vancomycin and IV ceftazidime * Discontinued yesterday after the sensitivities are back. * Sensitive only to Meropenem and ticarcillin - clavulanate. * If patient develops hypothermia again - will do a panculture. Wound cultures * Positive for P.Mirabilis, Diphteroids. * Sensitive to all the antibiotics * Daily wound dressings are done. Hematology: Normocytic anemia According to records from [facility] patient hemoglobin was 7.5 in April and he was transfused with 2 units of blood transfusion. * on iron supplements. Metabolic: History of Hypothyroidism * Will continue levothyroxine 0.025 via G-tube F/U TSH Alimentary: * PEG tube in place * Receiving tube feeds Neurological: History of seizure disorder * Continue Keppra and valproic acid via PEG tube Skin: Stage 4 pressure ulcer in the left ischial region * Measures around 1.3X1.4X2cm depth * No signs of infection evident so far * Cultures are positive for Diphteroids and P.Mirabilis. * Daily dressing with silver alginate. DVT/Prophylaxis: mechanical Code Status: Full Code
--- NOTE | 2016-07-04 10:36 | PN- Infect Dx ---
Subjective Subjective: Temperature down to 93 yesterday morning, prompting transfer back to the ICU for a bear hugger. He is unable to provide any history. Objective Last 24 Hrs of Vital Signs/I&O Vital Signs Date Time Temp Pulse Resp B/P Pulse O2 O2 Flow FiO2 Ox Delivery Rate 07/04 0400 99 Room Air 07/04 0000 100 Room Air 07/04 0000 98.0 78 16 130/60 100 Room Air 07/03 1600 98 Room Air 07/03 1600 96.7 64 16 140/70 98 Room Air 07/03 1150 93.7 Intake & Output 07/04 1600 07/04 0800 07/04 0000 Intake Total 950 648 Output Total 400 250 Balance 550 398 Intake, Tube 550 448 Feeding Intake, Tube 400 200 Irrigant Output, Urine 400 250 Physical Exam Other Physical Findings: He is awake and alert but not able to respond in any appropriate way Lungs are clear Heart regular rhythm with no murmur Abdomen is soft, with no obvious tenderness, positive bowel sounds Extremities no cyanosis, clubbing or edema Results Last 24 Hours of Lab Results: Laboratory Tests 07/04 07/03 0415 1550 Chemistry Sodium (137 - 145 mmol/L) 150 H Potassium (3.5 - 5.1 mmol/L) 4.6 Chloride (98 - 107 mmol/L) 108 H Carbon Dioxide (22 - 30 mmol/L) 31 H Anion Gap (5 - 16) 11 BUN (9 - 20 mg/dL) 41 H Creatinine (0.7 - 1.2 mg/dL) 1.1 Estimated GFR (>60 ml/min) > 60 BUN/Creatinine Ratio (7 - 25 %) 37.3 H Phosphorus (2.5 - 4.5 mg/dL) 4.0 Magnesium (1.6 - 2.3 mg/dL) 1.8 Hematology CBC w Diff NO MAN DIFF REQ NO MAN DIFF REQ WBC (4.8 - 10.8 /CUMM) 4.9 5.3 RBC (4.70 - 6.10 /CUMM) 3.16 L 2.87 L Hgb (14.0 - 18.0 G/DL) 10.1 L 9.2 L Hct (42 - 52 %) 30.1 L 27.3 L MCV (80.0 - 94.0 FL) 95.4 H 95.3 H MCH (27.0 - 31.0 PG) 31.9 H 32.0 H RDW (11.5 - 14.5 %) 16.9 H 16.6 H Plt Count (130 - 400 /CUMM) 101 L 86 L MPV (7.4 - 10.4 FL) 10.0 9.9 Gran % (42.2 - 75.2 %) 66.9 72.5 Lymphocytes % (20.5 - 51.1 %) 22.1 18.3 L Monocytes % (1.7 - 9.3 %) 5.0 5.2 Eosinophils % (0 - 5 %) 5.7 H 3.7 Basophils % (0.0 - 2.0 %) 0.3 0.3 Absolute Granulocytes (1.4 - 6.5 /CUMM) 3.3 3.8 Absolute Lymphocytes (1.2 - 3.4 /CUMM) 1.1 L 1.0 L Absolute Monocytes (0.10 - 0.60 /CUMM) 0.2 0.3 Absolute Eosinophils (0.0 - 0.7 /CUMM) 0.3 0.2 Absolute Basophils (0.0 - 0.2 /CUMM) 0 0 PUBS MCHC (33.0 - 37.0 G/DL) 33.5 33.6 Last 24 Hours of Kashif Results: Urine culture June 30 greater than 100,000 colonies of ESBL producing Escherichia coli sensitive only to Meropenem and Timentin and Proteus resistant to Ciprofloxacin and Nitrofurantoin Blood cultures 2 June 30 remain negative Assessment/Plan Impression: Stable with recurrent hypothermia of unclear etiology with resolution over the day yesterday, with white blood cell count remaining normal and with blood cultures negative. The significance of the positive urine culture is unclear in the setting of the suprapubic cystostomy and, as he is relatively stable, feel that he can continue to be followed off antibiotics. His thrombocytopenia is of unclear etiology, but appears to be increasing. His eosinophil count, which had normalized, is increasing, also of unclear etiology. Suggestion: 1. Would obtain medical records from his recent hospitalizations to review his previous laboratory data 2. Repeat blood cultures 2 if hypothermia recurs 3. Continue to follow off antibiotics
--- NOTE | 2016-07-04 12:56 | PN- Att Addend ---
Attending Addendum Attending Brief Note Yesterday patient became hypothermic again was moved to the intensive care unit and was followed by infectious diseases no focus for the "infection" parent at this time patient is off antibiotics if he becomes hypothermic again he will be recultured patient will be transferred again to the floor continue observation. Current Medications Sig/Judi Start time Last Medication Dose Route Stop Time Status Admin Acetaminophen 650 MG Q4H PRN 06/30 2330 AC PO Bisacodyl 10 MG DAILY PRN 06/30 2330 AC MO Ferrous Sulfate 300 MG BID 07/01 1000 AC 07/04 PO 0855 Lactobacillus 1 CAP TID 07/01 1000 AC 07/04 Acidophilus PO 0855 Levetiracetam 500 MG BID 07/01 1000 AC 07/04 G TUBE 0855 Levothyroxine Sodium 0.025 MG DAILY AC 07/01 07 AC 07/04 PO 0658 Magnesium Hydroxide 30 ML DAILY PRN 07/01 0015 AC PO Melatonin 3 MG AT BEDTIME 07/01 2200 AC 07/03 PO 2210 Omeprazole 20 MG DAILY 07/01 1000 AC 07/04 PO 0855 Risperidone 2 MG BID 07/01 1000 AC 07/04 PO 0855 Sodium Chloride 2 SPRAY Q4P PRN 07/03 1815 DC DONNY Valproic Acid 1,000 MG Q8 07/01 0600 AC 07/04 PO 0658 Laboratory Tests 07/04/16 0415: Anion Gap 11, Estimated GFR > 60, BUN/Creatinine Ratio 37.3 H, Phosphorus 4.0, Magnesium 1.8, CBC w Diff NO MAN DIFF REQ, RBC 3.16 L, MCV 95.4 H, MCH 31.9 H , RDW 16.9 H, MPV 10.0, Gran % 66.9, Lymphocytes % 22.1, Monocytes % 5.0, Eosinophils % 5.7 H, Basophils % 0.3, Absolute Granulocytes 3.3, Absolute Lymphocytes 1.1 L, Absolute Monocytes 0.2, Absolute Eosinophils 0.3, Absolute Basophils 0, PUBS MCHC 33.5 07/03/16 1550: CBC w Diff NO MAN DIFF REQ, RBC 2.87 L, MCV 95.3 H, MCH 32.0 H, RDW 16.6 H, MPV 9.9, Gran % 72.5, Lymphocytes % 18.3 L, Monocytes % 5.2, Eosinophils % 3.7, Basophils % 0.3, Absolute Granulocytes 3.8, Absolute Lymphocytes 1.0 L, Absolute Monocytes 0.3, Absolute Eosinophils 0.2, Absolute Basophils 0, PUBS MCHC 33.6
--- NOTE | 2016-07-04 13:11 | NUR ---
PT DOWNGRADED TO GENERAL MEDICINE. PT DRESSED AND ABLE TO PIVOT AND SIT UP IN WHEEL CHAIR.
[2016-07-04 16:00] VITALS: BP 123/58
--- NOTE | 2016-07-04 16:55 | NUR ---
WOUND CARE: REQUESTED BY [facility] RN TO EVALUATE PT FOR SKIN ALTERATION POA - LEFT ISCHIUM PRESENTS WITH A STAGE 4 PRESSURE INJURY 1.3 X 1.4 X 2 CM DEPTH TUNNELED EXTENDING MID CENTRALLY - UNABLE TO PALPATE EXPOSED BONE AT PRESENT - PALE PINK BASE WITH 25% VISIBLE SLOUGH NOTED - NO EVIDENCE OF INFECTION AT PRESENT TIME, BUT DUE TO CHRONICITY OF WOUND ? UNDERLYING OSTEO - PT CURRENTLY ON SIZE [place] MATTRESS RECOMMEDNATION: IRRIGATE WITH 200 CC NS FB LOOSELY PACK WITH SILVER ALGINATE DRESSING AND DPD DAILY AND PRN - DUE TO PTS NON AHERENCE WITH REPOSITIONING DESPITE USE OF SIZE [place] MATTRESS, PLEASE CONSIDER CLINITRON MATTRESS PT HAS STAGE 4 - IF FAILURE TO IMPROVE, PT MAY BENEFIT FROM OSTEO WORKUP AND PLASTICS EVALUATION - DR STAPLETON TO PLEASE ASSESS IN AM
[2016-07-05] VITALS: BP 108/58
[2016-07-05 06:02] LABS: ABSOLUTE BASOPHIL COUNT 0 /CUMM (0.0-0.2); ABSOLUTE EOSINOPHIL COUNT 0.2 /CUMM (0.0-0.7); ABSOLUTE GRANULOCYTE CT 2.3 /CUMM (1.4-6.5); ABSOLUTE MONOCYTE COUNT 0.3 /CUMM (0.10-0.60); BASOPHIL % 0.4 % (0.0-2.0); EOSINOPHIL % 5.9 % (0-5); GRANULOCYTE % 59.9 % (42.2-75.2); MEAN CORPUSCULAR HGB 31.9 PG (27.0-31.0); MEAN CORPUSCULAR HGB CONC 33.6 G/DL (33.0-37.0); MEAN PLATELET VOLUME 9.5 FL (7.4-10.4); PLATELET COUNT 86 /CUMM (130-400); RBC DISTRIBUTION WIDTH 16.8 % (11.5-14.5); RED BLOOD CELL CT 2.84 /CUMM (4.70-6.10); WHITE BLOOD CELL COUNT 3.8 /CUMM (4.8-10.8)
--- NOTE | 2016-07-05 07:23 | PN- Housestaff ---
Subjective Follow-up For: 1. Hypothermia - resolved 2. ESBL E.coli positive urine cultures. 3. Learning disability 4. History of seizures. Complaints: pt unable to provide hx Subjective: I saw and examined the patient. He is at his baseline. No more hypothermic episodes. Review of Systems Constitutional: Reports: see HPI. EENTM: Reports: see HPI. Comments: ROS cannot be appreciated as per the patient condition Objective Last 24 Hrs of Vital Signs/I&O Vital Signs Date Time Temp Pulse Resp B/P Pulse O2 O2 Flow FiO2 Ox Delivery Rate 07/05 0000 97.3 47 18 108/58 97 Room Air 07/04 1600 97.4 60 26 123/58 95 Room Air Intake & Output 07/05 1600 07/05 0800 07/05 0000 Intake Total 848 428 Output Total 300 400 Balance 548 28 Intake, Oral 0 Intake, Tube 448 168 Feeding Intake, Tube 400 260 Irrigant Number 0 Bowel Movements Output, Urine 300 400 Physical Exam General Appearance: Alert, No Acute Distress, cachexic Skin: No Rashes, No Breakdown HEENT: Atraumatic, PERRLA Neck: Supple Cardiovascular: Normal S1, Normal S2, No Murmurs Lungs: Clear to Auscultation, Normal Air Movement Abdomen: Normal Bowel Sounds, Soft, No Tenderness Extremities: No Clubbing, No Cyanosis, No Edema Vascular: Pulses Symmetrical Current Medications: Current Medications Sig/Judi Start time Last Medication Dose Route Stop Time Status Admin Acetaminophen 650 MG .STK-MED ONE 07/04 1412 DC PO 07/04 1413 Acetaminophen 650 MG Q4H PRN 06/30 2330 AC 07/04 PO 1416 Bisacodyl 10 MG DAILY PRN 06/30 2330 AC AZ Ferrous Sulfate 300 MG BID 07/01 1000 AC 07/04 PO 2201 Lactobacillus 1 CAP TID 07/01 999 AC 07/04 Acidophilus PO 2201 Levetiracetam 500 MG BID 07/01 999 AC 07/04 G TUBE 2201 Levothyroxine Sodium 0.025 MG DAILY AC 07/01 699 AC 07/05 PO 0602 Magnesium Hydroxide 30 ML DAILY PRN 07/01 0015 AC PO Magnesium Oxide 400 MG ONE ONE 07/05 0730 DC PO 07/05 0731 Melatonin 3 MG AT BEDTIME 07/010 AC 07/04 PO 2201 Omeprazole 20 MG DAILY 07/01 999 AC 07/04 PO 0855 Risperidone 2 MG BID 07/01 1000 AC 07/04 PO 2201 Valproic Acid 1,000 MG Q8 07/01 0600 AC 07/05 PO 0601 Last 24 Hrs of Lab/Kashif Results Last 24 Hrs of Labs/Mics: Laboratory Tests 07/05/16 0500: Anion Gap 11, Estimated GFR > 60, Glucose 83, Serum Osmolality Pending, Calcium 9.8, Phosphorus 4.0, Magnesium 1.7, Total Bilirubin 0.2, AST 26, ALT 28, Albumin 2.6 L, CBC w Diff NO MAN DIFF REQ, RBC 2.84 L, MCV 95.0 H, MCH 31.9 H, RDW 16.8 H, MPV 9.5, Gran % 59.9, Lymphocytes % 25.4, Monocytes % 8.4, Eosinophils % 5.9 H, Basophils % 0.4, Absolute Granulocytes 2.3, Absolute Lymphocytes 1.0 L, Absolute Monocytes 0.3, Absolute Eosinophils 0.2, Absolute Basophils 0, PUBS MCHC 33.6 Lines/Diet/Fluids Lines: peripheral lines Assessment/Plan Assessment: 36-year-old man with past medical history of intellectual disability, infantile autism, history of aspiration pneumonia, dysphagia with gastrostomy tube, neuromuscular dysfunction of bladder with suprapubic catheter, adrenocortical insufficiency, essential hypertension, seizures, hypothyroidism, anemia, chronic kidney disease, osteoarthritis, constipation, MRSA and VRE positive, history of C. difficile was sent into [facility] by PCP, Dr. Dodd because he was found to be hypothermic in his office. Acute hypothermia * 2 episodes of hypothermia requiring ICU admission for [facility] * Currently stable. * Any further hypothermic episodes - we will do pancultures. Hypernatremia * Patient found to have a sodium level of 149 today morning * Serum osmolality of 326 and urine osmolality of 470 * Increased free water flushes 275ml/4hrs through the tube feeds. * Started on D5W @75ml/hr and then discontinued * will recheck ICU bundle at 3pm ESBL E.Coli and proteus mirabilis in urinary cultures * Cultures are positive, not having any spikes in fever/white count. * 2 episodes of hypothermia so far * Initially started on IV vancomycin and IV ceftazidime * Discontinued after the sensitivities are back. * Sensitive only to Meropenem and ticarcillin - clavulanate. * If patient develops hypothermia again - will do a panculture. Stage 4 pressure ulcer in the left ischial region * Measures around 1.3X1.4X2cm depth * No signs of infection evident so far * Cultures are positive for Diphteroids and P.Mirabilis. * Daily dressing with silver alginate. History of seizure disorder * Continue Keppra and valproic acid via PEG tube History of Hypothyroidism * Will continue levothyroxine 0.025 via G-tube Normocytic anemia According to records from [facility] patient hemoglobin was 7.5 in April and he was transfused with 2 units of blood transfusion. * on iron supplements. Pancytopenia * requesting records from [facility] * person to contact - Rebelronnaus maldonado. [phone]. * may be obtained by tomorrow morning. DVT prophylaxis * ALPS - thrombocytopenic Code status - Full code Problem List: 1. Hypothermia 2. UTI (urinary tract infection) 3. Decubitus ulcer of left ischial area 4. ESBL E. coli carrier Pain Ratin Pain Location: n/a Pain Goal: Pain 4 or less Pain Plan: Tylneol Q4 PRN Tomorrow's Labs & Rationales: icu bundle cbc Consulting Request: Consulting Specialty: Infectious Disease
[2016-07-05 08:00] VITALS: BP 128/60
--- NOTE | 2016-07-05 10:03 | NUR ---
wound care: in addition to 07/04/15 assessment, evaluation of wc seat cushion seems to have bottomed out - pt will require evaluation for better oflfoading device after dc, preferably a ROHO cushion recommendation: please provide pt with script for ROHO seat cushion upon dc
--- NOTE | 2016-07-05 11:01 | PN- Infect Dx ---
Subjective Subjective: Temperatures normal. He is unable to provide any history Objective Last 24 Hrs of Vital Signs/I&O Vital Signs Date Time Temp Pulse Resp B/P Pulse O2 O2 Flow FiO2 Ox Delivery Rate 07/05 0000 97.3 47 18 108/58 97 Room Air 07/04 1600 97.4 60 26 123/58 95 Room Air Intake & Output 07/05 1600 07/05 0800 07/05 0000 Intake Total 848 428 Output Total 300 400 Balance 548 28 Intake, Oral 0 Intake, Tube 448 168 Feeding Intake, Tube 400 260 Irrigant Number 0 Bowel Movements Output, Urine 300 400 Physical Exam Other Physical Findings: He is awake and alert in no acute distress Lungs are clear Heart regular rhythm with no murmur Abdomen is soft, nontender with positive bowel sounds Extremities no cyanosis, clubbing or edema Results Last 24 Hours of Lab Results: Laboratory Tests 07/05 07/05 0830 0500 Chemistry Sodium (137 - 145 mmol/L) 149 H Potassium (3.5 - 5.1 mmol/L) 4.2 Chloride (98 - 107 mmol/L) 107 Carbon Dioxide (22 - 30 mmol/L) 31 H Anion Gap (5 - 16) 11 BUN (9 - 20 mg/dL) 47 H Creatinine (0.7 - 1.2 mg/dL) 1.0 Estimated GFR (>60 ml/min) > 60 Glucose (65 - 99 mg/dL) 83 Serum Osmolality (285 - 295 MOSM/KG) 326 H Calcium (8.4 - 10.2 mg/dL) 9.8 Phosphorus (2.5 - 4.5 mg/dL) 4.0 Magnesium (1.6 - 2.3 mg/dL) 1.7 Total Bilirubin (0.2 - 1.3 mg/dL) 0.2 AST (17 - 59 U/L) 26 ALT (21 - 72 U/L) 28 Albumin (3.5 - 5.0 g/dL) 2.6 L Hematology CBC w Diff NO MAN DIFF REQ WBC (4.8 - 10.8 /CUMM) 3.8 L RBC (4.70 - 6.10 /CUMM) 2.84 L Hgb (14.0 - 18.0 G/DL) 9.1 L Hct (42 - 52 %) 27.0 L MCV (80.0 - 94.0 FL) 95.0 H MCH (27.0 - 31.0 PG) 31.9 H RDW (11.5 - 14.5 %) 16.8 H Plt Count (130 - 400 /CUMM) 86 L MPV (7.4 - 10.4 FL) 9.5 Gran % (42.2 - 75.2 %) 59.9 Lymphocytes % (20.5 - 51.1 %) 25.4 Monocytes % (1.7 - 9.3 %) 8.4 Eosinophils % (0 - 5 %) 5.9 H Basophils % (0.0 - 2.0 %) 0.4 Absolute Granulocytes (1.4 - 6.5 /CUMM) 2.3 Absolute Lymphocytes (1.2 - 3.4 /CUMM) 1.0 L Absolute Monocytes (0.10 - 0.60 /CUMM) 0.3 Absolute Eosinophils (0.0 - 0.7 /CUMM) 0.2 Absolute Basophils (0.0 - 0.2 /CUMM) 0 PUBS MCHC (33.0 - 37.0 G/DL) 33.6 Urines Urine Osmolality (300 - 1000 MOSM/KG) 470 Last 24 Hours of Kashif Results: No recent cultures Assessment/Plan Impression: Stable with temperatures back to normal, with intermittent hypothermia of unclear etiology, with no evidence for any infectious process. The positive urine culture likely represents colonization secondary to his suprapubic cystostomy and, as he is stable, feel that he can continue to be followed off antibiotics. His thrombocytopenia is of unclear etiology as is his elevated eosinophil count, and any previous blood work would be helpful in further evaluating these. His elevated sodium suggests free water deficit and/or dehydration. Suggestion: 1. Would obtain previous laboratory data from his previous hospitalizations 2. Correct fluids/electrolyte status 3. Repeat blood cultures 2 if hypothermia recurs 4. Continue to follow off antibiotics Will no longer follow at this time, but please call with any questions
--- NOTE | 2016-07-05 12:54 | Patient Discharge Instructions ---
Discharge Instructions General Discharge Information You were seen/treated for: Hypothermia You had these procedures: none Special Instructions: Please maintain adequate room temparatures Please follow up with after 1 week Diet Continue normal diet: No Recommended Diet: tube feeds Activity Full Activity/No Limits: No Activity Self Limited: Yes Acute Coronary Syndrome Inclusion Criteria At DC or during hospital stay patient has or had the following: ACS DIAGNOSIS No Discharge Core Measures Meds if any: Prescribed or Continued at Discharge Meds if any: NOT Prescribed or Continued at Discharge Congestive Heart Failure Inclusion Criteria At DC or during hospital stay patient has or had the following: CHF DIAGNOSIS No Discharge Core Measures Meds if any: Prescribed or Continued at Discharge Meds if any: NOT Prescribed or Continued at Discharge Cerebrovascular accident Inclusion Criteria At DC or during hospital stay patient has or had the following: CVA/TIA Diagnosis No Discharge Core Measures Meds if any: Prescribed or Continued at Discharge Meds if any: NOT Prescribed or Continued at Discharge Venous thromboembolism Inclusion Criteria VTE Diagnosis No VTE Type NONE VTE Confirmed by (Test) NONE Discharge Core Measures - Per Current guidelines, there needs to be overlap - treatment for the first 5 days of Warfarin therapy. - If discharged on Warfarin prior to 5 days of - overlap therapy, the patient will need to be - assessed for post discharge needs including - *Post discharge parental anticoagulation - *Warfarin and/or parental anticoagulation education - *Follow up date to check INR post discharge At least 5 days overlap therapy as Inpatient No Meds if any: Prescribed or Continued at Discharge Note: Overlap Therapy is Warfarin and Anticoagulant Meds if any: NOT Prescribed or Continued at Discharge
[2016-07-05 16:00] VITALS: BP 118/50
--- NOTE | 2016-07-05 16:27 | NUR ---
PT SUPINE IN BED SEMI FOWLERS,SKIN WARM AND DRY TO TOUCH,PEG TUBE INTACT,SPT INTACT,NPO ICE SWABS ONLY, FALL AND ASP RISK, 1-[address], DRESSED AND KEPT WARM. INDEPENDENTLY TURNS BUT REMAINS TO LEFT SIDE AND HAS STAGE 4 DECUBE SEE WOUND CARE NOTES. ISOLATION FOR HX MRSA,VRE AND ESBL.
--- NOTE | 2016-07-05 17:23 | PN- Att Addend ---
Attending Addendum Attending Brief Note No new issues, his temperature is normal. Appreciate recommendations are following the patient off antibiotic due to no clear infection at the abnormal urine probably colonization from the suprapubic catheter vital signs are otherwise stable. He has chronic low platelets. We'll start disposition plans to return patient to his longterm Current Medications Sig/Judi Start time Last Medication Dose Route Stop Time Status Admin Acetaminophen 650 MG Q4H PRN 06/30 2330 AC 07/05 PO 1625 Bisacodyl 10 MG DAILY PRN 06/30 2330 AC ID Dextrose/Water 1,000 ML Q13H 07/05 0830 DC 07/05 IV 1049 Ferrous Sulfate 300 MG BID 07/01 1000 AC 07/05 PO 1050 Lactobacillus 1 CAP TID 07/01 1000 AC 07/05 Acidophilus PO 1625 Levetiracetam 500 MG BID 07/01 1000 AC 07/05 G TUBE 1051 Levothyroxine Sodium 0.025 MG DAILY AC 07/01 0700 AC 07/05 PO 0602 Magnesium Hydroxide 30 ML DAILY PRN 07/01 0015 AC PO Magnesium Oxide 400 MG ONE ONE 07/05 0730 DC 07/05 PO 07/05 0731 1051 Melatonin 3 MG AT BEDTIME 07/01 2200 AC 07/04 PO 2201 Omeprazole 20 MG DAILY 07/01 1000 AC 07/04 PO 0855 Risperidone 2 MG BID 07/01 1000 AC 07/05 PO 1049 Valproic Acid 1,000 MG Q8 07/01 0600 AC 07/05 PO 1446 Laboratory Tests 07/05/16 1500: Anion Gap 11, Estimated GFR > 60, Glucose 73, Calcium 9.7, Phosphorus 3.5, Magnesium 1.7, Total Bilirubin 0.2, AST 30, ALT 30, Albumin 2.8 L 07/05/16 0830: Urine Osmolality 470 07/05/16 0500: Anion Gap 11, Estimated GFR > 60, Glucose 83, Serum Osmolality 326 H, Calcium 9.8, Phosphorus 4.0, Magnesium 1.7, Total Bilirubin 0.2, AST 26, ALT 28, Albumin 2.6 L, CBC w Diff NO MAN DIFF REQ, RBC 2.84 L, MCV 95.0 H, MCH 31.9 H, RDW 16.8 H, MPV 9.5, Gran % 59.9, Lymphocytes % 25.4, Monocytes % 8.4, Eosinophils % 5.9 H, Basophils % 0.4, Absolute Granulocytes 2.3, Absolute Lymphocytes 1.0 L, Absolute Monocytes 0.3, Absolute Eosinophils 0.2, Absolute Basophils 0, PUBS MCHC 33.6 Vital Signs Date Time Temp Pulse Resp B/P Pulse O2 O2 Flow FiO2 Ox Delivery Rate 07/05 1625 97.7 Intake & Output 07/05 1600 Intake Total 1223 Output Total 570 Balance 653 Intake, IV 300 Intake, Tube 448 Feeding Intake, Tube 475 Irrigant Output, Urine 570
--- NOTE | 2016-07-05 18:05 | NUR ---
NA WAS 149, AT 1500 146, BS 73 AT 1500,AT 1800 78 ACCU CHECK. REPORTED TO CLAIMS MANAGER.
[2016-07-06] VITALS: BP 120/60
--- NOTE | 2016-07-06 07:45 | PN- Housestaff ---
Subjective Follow-up For: 1. Hypothermia - resolved 2. ESBL E.coli positive urine cultures. 3. Learning disability 4. History of seizures. Complaints: pt unable to provide hx Subjective: I saw and examined the patient. He is at his baseline. No more hypothermic episodes. Review of Systems Constitutional: Reports: see HPI. Comments: ROS cannot be appreciated as per the patient condition. Objective Last 24 Hrs of Vital Signs/I&O Vital Signs Date Time Temp Pulse Resp B/P Pulse O2 O2 Flow FiO2 Ox Delivery Rate 07/06 1441 97.5 68 18 120/70 07/06 0800 97.5 68 18 120/70 94 Room Air 07/06 0000 97 Room Air 07/06 0000 97.6 61 22 120/60 97 Room Air Intake & Output 07/06 1600 07/06 0800 07/06 0000 Intake Total 730 709 3641 Output Total 700 600 500 Balance -89 350 548 Intake, Tube 336 400 448 Feeding Intake, Tube 275 550 600 Irrigant Number 1 Bowel Movements Output, Urine 700 600 500 Physical Exam General Appearance: Alert, Moderate Distress, thin Skin: No Rashes HEENT: Atraumatic, PERRLA Neck: Supple Cardiovascular: Normal S1, Normal S2 Lungs: Clear to Auscultation, Normal Air Movement Abdomen: Normal Bowel Sounds, Soft, No Tenderness Extremities: No Clubbing, No Cyanosis, No Edema Vascular: Pulses Symmetrical Current Medications: Current Medications Sig/Judi Start time Last Medication Dose Route Stop Time Status Admin Acetaminophen 650 MG Q4H PRN 06/30 2330 DCD 07/05 PO 1625 Ascorbic Acid 500 MG BID 07/05 2199 DCD 07/06 PO 1003 Bisacodyl 10 MG DAILY PRN 06/30 2330 DCD 07/06 [place] 1234 Ferrous Sulfate 300 MG BID 07/01 1000 DCD 07/06 PO 1003 Lactobacillus 1 CAP TID 07/01 1000 DCD 07/06 Acidophilus PO 1003 Levetiracetam 500 MG BID 07/01 1000 DCD 07/06 G TUBE 1003 Levothyroxine Sodium 0.025 MG DAILY AC 07/01 699 DCD 07/06 PO 0605 Magnesium Hydroxide 30 ML DAILY PRN 07/01 0015 DCD PO Melatonin 3 MG AT BEDTIME 07/01 2199 DCD 07/05 PO 2111 Multivitamins 5 ML DAILY 07/05 1916 DCD 07/06 PO 1004 Omeprazole 20 MG DAILY 07/01 1000 DCD 07/04 PO 0855 Risperidone 2 MG BID 07/01 1000 DCD 07/06 PO 1003 Valproic Acid 1,000 MG Q8 07/01 0600 DCD 07/06 PO 1401 Last 24 Hrs of Lab/Kashif Results Last 24 Hrs of Labs/Mics: Laboratory Tests 07/06/16 0820: Anion Gap 11, Estimated GFR > 60, Glucose 68, Serum Osmolality 323 H, Calcium 9.8, Phosphorus 3.6, Magnesium 1.7, Total Bilirubin 0.3, AST 44, ALT 38, Albumin 3.0 L, CBC w Diff NO MAN DIFF REQ, RBC 3.12 L, MCV 95.4 H, MCH 31.8 H, RDW 15.7 H, MPV 8.9, Gran % 55.0, Lymphocytes % 27.6, Monocytes % 9.1, Eosinophils % 7.8 H, Basophils % 0.5, Absolute Granulocytes 1.6, Absolute Lymphocytes 0.8 L, Absolute Monocytes 0.3, Absolute Eosinophils 0.2, Absolute Basophils 0, PUBS MCHC 33.3 07/06/16 0400: Urine Osmolality 434 Lines/Diet/Fluids Lines: peripheral lines Assessment/Plan Assessment: 36-year-old man with past medical history of intellectual disability, infantile autism, history of aspiration pneumonia, dysphagia with gastrostomy tube, neuromuscular dysfunction of bladder with suprapubic catheter, adrenocortical insufficiency, essential hypertension, seizures, hypothyroidism, anemia, chronic kidney disease, osteoarthritis, constipation, MRSA and VRE positive, history of C. difficile was sent into [facility] by PCP, Dr. Dodd because he was found to be hypothermic in his office. Acute hypothermia * 2 episodes of hypothermia requiring ICU admission for [facility] * Currently stable. * Any further hypothermic episodes - we will do pancultures. Hypernatremia * Resolved. * Patient found to have a sodium level of 146 today morning * Serum osmolality of 323 and urine osmolality of 434 ESBL E.Coli and proteus mirabilis in urinary cultures * Cultures are positive, not having any spikes in fever/white count. * 2 episodes of hypothermia so far * Initially started on IV vancomycin and IV ceftazidime * Discontinued after the sensitivities are back. * Sensitive only to Meropenem and ticarcillin - clavulanate. * If patient develops hypothermia again - will do a panculture. Stage 4 pressure ulcer in the left ischial region * Measures around 1.3X1.4X2cm depth * No signs of infection evident so far * Cultures are positive for Diphteroids and P.Mirabilis. * Daily dressing with silver alginate. History of seizure disorder * Continue Keppra and valproic acid via PEG tube History of Hypothyroidism * Will continue levothyroxine 0.025 via G-tube Normocytic anemia According to records from [facility] patient hemoglobin was 7.5 in April and he was transfused with 2 units of blood transfusion. * on iron supplements. Pancytopenia * requesting records from [facility] * person to contact - Avinash maldonado. [phone]. * got discharged to [facility] today. DVT prophylaxis * ALPS - thrombocytopenic Code status - Full code Problem List: 1. Hypothermia 2. Decubitus ulcer of left ischial area 3. ESBL E. coli carrier Pain Ratin Pain Location: n/a Pain Goal: Pain 4 or less Pain Plan: Tylenol PRN Tomorrow's Labs & Rationales: none Consulting Request: Consulting Specialty: Infectious Disease
[2016-07-06 08:00] VITALS: BP 120/70
[2016-07-06 10:06] LABS: ABSOLUTE BASOPHIL COUNT 0 /CUMM (0.0-0.2); ABSOLUTE EOSINOPHIL COUNT 0.2 /CUMM (0.0-0.7); ABSOLUTE GRANULOCYTE CT 1.6 /CUMM (1.4-6.5); ABSOLUTE LYMPH COUNT 0.8 /CUMM (1.2-3.4); ABSOLUTE MONOCYTE COUNT 0.3 /CUMM (0.10-0.60); BASOPHIL % 0.5 % (0.0-2.0); EOSINOPHIL % 7.8 % (0-5); HEMATOCRIT 29.8 % (42-52); MEAN CORPUSCULAR HGB 31.8 PG (27.0-31.0); MEAN CORPUSCULAR HGB CONC 33.3 G/DL (33.0-37.0); MEAN CORPUSCULAR VOLUME 95.4 FL (80.0-94.0); MEAN PLATELET VOLUME 8.9 FL (7.4-10.4); PLATELET COUNT 86 /CUMM (130-400); RBC DISTRIBUTION WIDTH 15.7 % (11.5-14.5); RED BLOOD CELL CT 3.12 /CUMM (4.70-6.10)
--- NOTE | 2016-07-06 12:22 | PN- Att Addend ---
Attending Addendum Attending Brief Note No new issues, patient's temperature is normal with no new changes except some agitation will start his position plans [facility] see [facility] and CMR. Current Medications Sig/Judi Start time Last Medication Dose Route Stop Time Status Admin Acetaminophen 650 MG .STK-MED ONE 07/05 1544 DC PO 07/05 1545 Acetaminophen 650 MG Q4H PRN 06/30 2330 AC 07/05 PO 1625 Ascorbic Acid 500 MG BID 07/05 2200 AC 07/06 PO 1003 Bisacodyl 10 MG DAILY PRN 06/30 2330 AC NM Dextrose/Water 1,000 ML Q13H 07/05 0830 DC 07/05 IV 1049 Ferrous Sulfate 300 MG BID 07/01 1000 AC 07/06 PO 1003 Lactobacillus 1 CAP TID 07/01 1000 AC 07/06 Acidophilus PO 1003 Levetiracetam 500 MG BID 07/01 1000 AC 07/06 G TUBE 1003 Levothyroxine Sodium 0.025 MG DAILY AC 07/01 0700 AC 07/06 PO 0605 Magnesium Hydroxide 30 ML DAILY PRN 07/01 0015 AC PO Melatonin 3 MG AT BEDTIME 07/01 2200 AC 07/05 PO 2111 Multivitamins 5 ML DAILY 07/05 1916 AC 07/06 PO 1004 Multivitamins 1 TAB DAILY 07/05 1820 DC PO Omeprazole 20 MG DAILY 07/01 1000 AC 07/04 PO 0855 Risperidone 2 MG BID 07/01 1000 AC 07/06 PO 1003 Valproic Acid 1,000 MG Q8 07/01 0600 AC 07/06 PO 0605 Laboratory Tests 07/06/16 0820: Anion Gap 11, Estimated GFR > 60, Glucose 68, Serum Osmolality 323 H, Calcium 9.8, Phosphorus 3.6, Magnesium 1.7, Total Bilirubin 0.3, AST 44, ALT 38, Albumin 3.0 L, CBC w Diff NO MAN DIFF REQ, RBC 3.12 L, MCV 95.4 H, MCH 31.8 H, RDW 15.7 H, MPV 8.9, Gran % 55.0, Lymphocytes % 27.6, Monocytes % 9.1, Eosinophils % 7.8 H, Basophils % 0.5, Absolute Granulocytes 1.6, Absolute Lymphocytes 0.8 L, Absolute Monocytes 0.3, Absolute Eosinophils 0.2, Absolute Basophils 0, PUBS MCHC 33.3 07/06/16 0400: Urine Osmolality 434 07/05/16 1500: Anion Gap 11, Estimated GFR > 60, Glucose 73, Calcium 9.7, Phosphorus 3.5, Magnesium 1.7, Total Bilirubin 0.2, AST 30, ALT 30, Albumin 2.8 L Vital Signs Date Time Temp Pulse Resp B/P Pulse O2 O2 Flow FiO2 Ox Delivery Rate 07/06 08 97.5 68 18 120/70 94 Room Air 07/06 0000 97 Room Air 07/06 0000 97.6 61 22 120/60 97 Room Air 07/05 1831 97.8 07/05 1625 97.7 07/05 1600 97.8 58 16 118/50 93 Room Air Intake & Output 07/06 1600 07/06 0800 07/06 0000 Intake Total 950 1048 Output Total 400 600 500 Balance -400 350 548 Intake, Tube 400 448 Feeding Intake, Tube 550 600 Irrigant Output, Urine 400 600 500
--- NOTE | 2016-07-06 12:40 | NUR ---
report called to [facility], this nurse spoke with child care group leader nestor [phone].
--- NOTE | 2016-07-06 13:40 | NUR ---
this nurse updated nurse at [facility], nestor, patient had bm.
[2016-07-06 14:41] VITALS: BP 120/70
--- NOTE | 2016-07-06 21:01 | Discharge Summary ---
Visit Information Visit Dates Admission Date: 06/30/16 Discharge Date: 07/06/16 Hospital Course Course Attending Physician: DESIRE REID MD Primary Care Physician: JANESSA DODD MD Consulting Request: Consulting Specialty: Infectious Disease Consulting Physician: Reason for Consult: Suspected sepsis Hospital Course: 36-year-old man with past medical history of intellectual disability, infantile autism, history of aspiration pneumonia, dysphagia with gastrostomy tube, neuromuscular dysfunction of bladder with suprapubic catheter, adrenocortical insufficiency, essential hypertension, seizures, hypothyroidism, anemia, chronic kidney disease, osteoarthritis, constipation, MRSA and VRE positive, history of C. difficile was sent into [place] [facility] by PCP, Dr. Dodd because he was found to be hypothermic in his office. In the ER he is found to have vitals with Temp of 88 initially, pulse 88, RR 20, BP 133/79mmHg, pulse oximetry 99% on room air. Labs are significant for Pancytopenia with H&H of 11.2/33.3, platelet count of 125, white count of 5.3. Urine is dirty. He is admitted to ICU and got treated for the following conditions Acute hypothermia initially placed in ICU and stabilized with jaymie hugger, eventually he was transferred to telemety floor. He developed another episode of hypothermia and again transfered to ICU. He was stabilized and discharged directly from ICU Hypernatremia He is found to have sodium of 149 a day before discharge, started on D5W and increased PEG free water flushes and subsequently found to have a sodium of 146 today. Serum osmolality of 323 and urine osmolality of 434. Most probably secondary to dehydration. Sodium on the day of discharge is 146. ESBL E.Coli and proteus mirabilis in urinary cultures Cultures are positive, not having any spikes in fever/ white count. he had 2 episodes of hypothermia so far. Initially started on IV vancomycin and IV ceftazidime. Discontinued after the sensitivities are back. Sensitive only to Meropenem and ticarcillin - clavulanate. In the absence of fever and white count - positive cultures are possibly secondary to colonization of the suprapubic catheter which doesnt require any antibiotics. Stage 4 pressure ulcer in the left ischial region He had a pressure ulcer in the left ischial region measuring around 1.3X1.4X2cm depth. No signs of infection evident so far. Cultures are positive for Diphteroids and P.Mirabilis indicating colonization without any erythema, pus or warmth. Daily dressing with silver alginate is done. History of seizure disorder We Continued Keppra and valproic acid via PEG tube. History of Hypothyroidism we continued levothyroxine 0.025 via G-tube Normocytic anemia [facility] hemoglobin was 7.5 in April and he was transfused with 2 units of blood transfusion. Received iron supplements. Complications: Hypothermic episode requiring ICU transfer for jaymie barr. Allergies: Coded Allergies: Penicillins (Severe, DIFFICULTY BREATHING 06/30/16) venom-honey bee (Severe, HIVES 06/30/16) Cephalosporins (UNKNOWN PER 06/30/16) NSAIDS (Non-Steroidal Anti-Inflamma (UNKNOWN PER 06/30/16) latex (UNKNOWN PER 06/30/16) shellfish derived (UNKNOWN PER 06/30/16) sulfamethoxazole (From BACTRIM) (UNKNOWN PER 06/30/16) trimethoprim (From BACTRIM) (UNKNOWN PER 06/30/16) Significant Procedures: none Pertinent Lab Results: as above Disposition Summary Disposition Principal Diagnosis: Acute hypothermia Additional Diagnosis: Hypernatremia [facility]charge Disposition[facility] Discharge Instructions General Discharge Information Code Status: Full Code Patient's Diet: Via PEG tube. NPO Patient's Activity: activity as tolerated Follow-Up Instructions/Appts: Please follow up with after 1 week Need a recheck of electrolytes. Medications at Discharge Discharge Medications: Continue taking these medications: Ferrous Sulfate (Ferosul) 220 MG (44 MG IRON)/5 ML SOLUTION 7.4 Milliliters G TUBE TWICE DAILY Comments: last given 07/06/16 1030 am Lactobacillus Acidophilus (Acidophilus) 1 EACH CAPSULE 1 Capsule G TUBE THREE TIMES DAILY Comments: last given 07/06/16 Levetiracetam (Keppra) 100 MG/ML SOLUTION 5 Milliliters G TUBE TWICE DAILY Comments: Last Taken: 07/06/16 Time:1030 Levothyroxine Sodium (Levothyroxine Sodium) 25 MCG TABLET 1 Tablet G TUBE DAILY Comments: Last Taken:07/06/16 Time: 0600 Melatonin (Melatonin) 1 MG/ML LIQUID 3 Milliliters G TUBE TAKE AT BEDTIME Comments: PER AUG Omeprazole (Omeprazole) 20 MG CAPSULE.DR 1 Capsule G TUBE DAILY Comments: PER AUG Risperidone (Risperidone Odt) 2 MG TAB.RAPDIS 1 Tablet G TUBE TWICE DAILY Comments: Last Taken:07/06/16 Time: 1030 Valproic Acid (As Sodium Salt) (Valproic Acid) 250 MG/5 ML SOLUTION 20 Milliliters G TUBE Q8H Comments: Last Taken:07/06/16 Time: 0600 Ergocalciferol (Vitamin D2) (Vitamin D2) 50,000 UNIT CAPSULE 1 Capsule G TUBE ONCE A MONTH Comments: PER AUG [NOVA SOURCE RENAL] 220 Milliliters G TUBE 5XDAILY Comments: PER AUG Ipratropium/Albuterol Sulfate (Iprat-Albut 0.5-3(2.5) MG/3 Ml) 0.5 MG-3 MG (2.5 MG BASE)/3 ML AMPUL.NEB 1 VIAL Inhale through mouth Q4H as needed for COUGH/WHEEZING Comments: PER AUG Magnesium Hydroxide (Milk Of Magnesia) 400 MG/5 ML ORAL.SUSP 30 Milliliters G TUBE DAILY Comments: AFTER 2 DAYS NO BM PER AUG Na Phos,M-B/Na Phos,Di-Ba (Fleet Enema) 19 GRAM-7 GRAM/118 ML ENEMA 1 Enema RECTAL DAILY as needed for CONSTIPATION Comments: IF BISACODYL INEFFECTIVE Bisacodyl (Bisacodyl) 10 MG SUPP.RECT 1 Suppository RECTAL DAILY as needed for CONSTIPATION Comments: PER AUG IF MOM INEFFECTIVE Acetaminophen (Acetaminophen) 325 MG TABLET 2 Tablet G TUBE Q4H as needed for PAIN/TEMP>100.5 Comments: PER AUG NTE 3GM IN 24H Acetaminophen (Acephen) 650 MG SUPP.RECT 1 SUPPOSITORY RECTALLY Q4H as needed for PAIN/TEMP>100.5 Comments: PER AUG NTE 3GM IN 24H Bacitracin (Bacitracin) 500 UNIT/GRAM OINT...G. 1 Application On the skin As Directed as needed for ABRASIONS/LACERATIONS Instructions: apply to affected area(s) Comments: PER AUG Epinephrine (Epipen 2-Blayne) 0.3 MG/0.3 ML AUTO.INJCT 0.3 Milligram INJECTABLE As Directed as needed for ANAPHYLAXIS Comments: PER AUG Copies To: JANESSA DODD MD Attending Review Statement Documenting Attending: JANESSA DODD MD
[2016-12-12] MEDS ORDERED: NEXIUM40 M2 G TUBE (19:19)
[2016-12-12] MEDS ORDERED: NEPRO CARB STE237 ML G TUBE ×2 (19:20→19:21)
== END 2016-07-06 15:20 | disposition home health service (06) | DRG 815 ==
LOC: ERH 17:08 → ERHI 20:58 → CRI 20:58 → 1NO 07-02 04:40 → CRI 07-03 11:50
PROVIDERS: Internal Medicine; Internal Medicine Infectious Disease; Physician Assistant Medical; Student in an Organized Health Care Education/Training Program; ADMIT Internal Medicine
DX: T68.XXXA Hypothermia, initial encounter (principal); I95.9 Hypotension, unspecified; F84.0 Autistic disorder; I10 Essential (primary) hypertension; E03.9 Hypothyroidism, unspecified; E27.40 Unspecified adrenocortical insufficiency; N13.30 Unspecified hydronephrosis; E87.0 Hyperosmolality and hypernatremia; L89.224 Pressure ulcer of left hip, stage 4; D64.9 Anemia, unspecified; Z93.1 Gastrostomy status; R56.9 Unspecified convulsions; N18.9 Chronic kidney disease, unspecified; M19.90 Unspecified osteoarthritis, unspecified site; Z86.14 Personal history of Methicillin resistant Staphylococcus aureus infection; D61.818 Other pancytopenia
CPT/HCPCS: 1NP; CCU; 36415; 74176; 80307; 81001; 82436; 87040; 87070; 87071; 87086; 93005; 93010; 96365; 96375; J0713; J3370; J7040; J7042; J7060

== ENCOUNTER 2017-01-21 08:27 | Emergency (ER) | payer OTHER ==
[~2017-01-21] VITALS: Ht 167.6 cm; Wt 60.8 kg
[~2017-01-21 08:27] MED LIST: ACEPHEN650 M1 PR; ACETAMINOPHEN325 M2 G TUBE; ACIDOPHILUS1 EACH G TUBE; BACITRACIN28.4 GM TOP; BISACODYL10 M1 RC; CIPROFLOXACIN500 M2 PO; EPIPEN 2-P0.3 MG/0.3 INJ; FEROSUL220 MG/5 M G TUBE; FLEET ENEMA133 ML RC; IPRAT-ALBUT 0.5-3 ML INH; KEPPRA100 MG/1 M G TUBE; LEVOTHYROXINE25 MCG G TUBE; MELATONIN1 MG/1 ML G TUBE; MILK OF MA400 MG/52 G TUBE; NEPRO CARB STE237 ML G TUBE; NEXIUM40 M2 G TUBE; OMEPRAZOLE20 M2 G TUBE; RISPERIDONE ODT2 MG G TUBE; VALPROIC A250 MG/51 G TUBE; VITAMIN D250000 UNIT G TUBE; VITAMIN D250000 UNIT PO; [UNRECOGNIZED DRUG - OTHER] G TUBE
[2017-01-21 08:33] VITALS: BP 100/58
--- NOTE | 2017-01-21 08:37 | ED GI/GU/ABDOMINAL COMPLAINT ---
History of Present Illness General Chief Complaint: Male Genitourinary Problems Stated Complaint: PULLED OUT CATHETER Source: patient Exam Limitations: no limitations Vital Signs & Intake/Output Vital Signs & Intake/Output Vital Signs Date Time Temp Pulse Resp B/P B/P Pulse O2 O2 Flow FiO2 Mean Ox Delivery Rate 01/21 0833 98.4 76 18 100/58 98 Room Air Allergies Coded Allergies: Penicillins (Severe, DIFFICULTY BREATHING 06/30/16) venom-honey bee (Severe, HIVES 06/30/16) Cephalosporins (UNKNOWN PER 06/30/16) NSAIDS (Non-Steroidal Anti-Inflamma (UNKNOWN PER 06/30/16) latex (UNKNOWN PER 06/30/16) shellfish derived (UNKNOWN PER 06/30/16) sulfamethoxazole (From BACTRIM) (UNKNOWN PER 06/30/16) trimethoprim (From BACTRIM) (UNKNOWN PER 06/30/16) Reconcile Medications Acetaminophen 325 MG TABLET 2 TAB G TUBE Q4H PRN PAIN/TEMP>100.5 (Reported) Acetaminophen (Acephen) 650 MG SUPP.RECT 1 SUPP DC Q4H PRN PAIN/TEMP>100.5 ( Reported) Bacitracin 500 UNIT/GRAM OINT...G. 1 KAITY TOP AD PRN ABRASIONS/LACERATIONS ( Reported) apply to affected area(s) Bisacodyl 10 MG SUPP.RECT 1 SUP RC DAILY PRN CONSTIPATION (Reported) Ciprofloxacin HCl 500 MG TABLET 1 TAB PO BID ANTIBIOTIC, INFECTION (Reported) Epinephrine (Epipen 2-Blayne) 0.3 MG/0.3 ML AUTO.INJCT 0.3 MG INJ AD PRN ANAPHYLAXIS (Reported) Ergocalciferol (Vitamin D2) (Vitamin D2) 50,000 UNIT CAPSULE 1 CAP G TUBE Q30D SUPPLEMENT (Reported) Esomeprazole Magnesium (Nexium) 40 MG SUSPDR.PKT 1 PAC G TUBE DAILY GI ( Reported) Ferrous Sulfate (Ferosul) 220 MG (44 MG IRON)/5 ML SOLUTION 7.4 ML G TUBE BID SUPPLEMENT (Reported) Ipratropium/Albuterol Sulfate (Iprat-Albut 0.5-3(2.5) MG/3 Ml) 0.5 MG-3 MG (2.5 MG BASE)/3 ML AMPUL.NEB 1 VIAL INH Q4H PRN COUGH/WHEEZING (Reported) Lactobacillus Acidophilus (Acidophilus) 1 EACH CAPSULE 1 CAP G TUBE TID PROBIOTIC (Reported) Levetiracetam (Keppra) 100 MG/ML SOLUTION 5 ML G TUBE BID SEIZURES (Reported) Levothyroxine Sodium 25 MCG TABLET 1 TAB G TUBE DAILY THYROID (Reported) Magnesium Hydroxide (Milk Of Magnesia) 400 MG/5 ML ORAL.SUSP 30 ML G TUBE DAILY CONSTIPATION (Reported) Melatonin 1 MG/ML LIQUID 3 ML G TUBE QHS SUPPLEMENT (Reported) Na Phos,M-B/Na Phos,Di-Ba (Fleet Enema) 19 GRAM-7 GRAM/118 ML ENEMA 1 E RC DAILY PRN CONSTIPATION (Reported) Nut.tx.impaired Renal Fxn,Soy (Nepro Carb Steady) 0.08 GRAM-1.80 KCAL/ML LIQUID 237 ML G TUBE BID SUPPLEMENT (Reported) Nut.tx.impaired Renal Fxn,Soy (Nepro Carb Steady) 0.08 GRAM-1.80 KCAL/ML LIQUID 356 ML G TUBE BID SUPPLEMENT (Reported) Risperidone (Risperidone Odt) 2 MG TAB.RAPDIS 1 TAB G TUBE BID UNKNOWN ( Reported) Triage Note: 36 YO MALE BROUGHT IN BY WORKER FROM CARE HOME. PER PATROLLER, PT PULLED OUT SUPRAPUBIC TUBE LAST PM. Triage Nurses Notes Reviewed? yes Onset: Abrupt Duration: hour(s): (1) Timing: single episode today No Modifying Factors: none HPI: 36 year old male presents to the ER with operations research group manager after suprapubic hobbs catheter coming out. The aide suspects that the weight of the full Hobbs bag with 1500 mL I have pulled the Hobbs catheter out as the balloon was intact. 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 Past History Travel History Traveled to [place] past 21 day No Medical History Any Pertinent Medical History? 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 Blood Disorders: anemia History of MRSA: Yes History of VRE: No History of CDIFF: No Surgical History Surgical History: suprapubic cystostomy status post gastrostomy gastrostomy tube Psychosocial History Who do you live with Other (see notes) What is your primary language Yi Tobacco Use: Cognitive Impairment Family History Hx Contributory? No Review of Systems Review of Systems Constitutional: Denies: chills, fever. EENTM: Reports: no symptoms. Respiratory: Reports: no symptoms. Cardiovascular: Reports: no symptoms. GI: Denies: abdominal pain, vomiting. Genitourinary: Reports: see HPI (HOBBS PULLED OUT). Musculoskeletal: Reports: no symptoms. Skin: Reports: no symptoms. Neurological/Psychological: Reports: no symptoms. Hematologic/Endocrine: Reports: no symptoms. Immunologic/Allergic: Reports: no symptoms. All Other Systems: Reviewed and Negative Physical Exam Physical Exam General Appearance: alert, awake, mild distress, thin Head: atraumatic Eyes: Bilateral: PERRL. Gastrointestinal: normal bowel sounds, soft, non-tender, PEG, SUPRAPUBIC OSTOMY SITE CLEAN Neurologic/Psych: awake, alert, NONVERBAL Core Measures ACS in differential dx? No Severe Sepsis Present: No Septic Shock Present: No Progress Differential Diagnosis: DISLODGED SUPRAPUBIC HOBBS Plan of Care: Orders Procedure Date/time Status Hobbs, Insertion/Removal/Asses 01/21 0810 Active 18 F hobbs replaced in suprapubic site without incident (VIDAL BISHOP,ALAN) Initial ED EKG: none Departure Departure Disposition: HOME OR SELF CARE Condition: Stable Clinical Impression Primary Impression: Hobbs catheter problem Referrals: AJNESSA NOONAN MD (PCP/Family) Additional Instructions: follow up with Dr. Gongora as needed Departure Forms: Customer Survey General Discharge Information
== END 2017-01-21 09:05 ==
LOC: ERH 08:27
DX: Z43.6 Encounter for attention to other artificial openings of urinary tract (principal)

== ENCOUNTER → 2017-08-09 | Day surgery (SDC) | payer OTHER ==
[~2017-08-09] VITALS: Ht 162.6 cm; Wt 68.0 kg
[~2017-08-09] MED LIST changes: +DESITIN57 GM TOP; +NEPRO G TUBE
--- NOTE | 2017-08-09 10:00 | Operative Report ---
Operative/Inv Procedure Report Surgery Date: 08/09/17 Name of Procedure: cystoscopy: spt change Pre-Operative Diagnosis: urinary retention-SPT Post-Operative Diagnosis: same Estimated Blood Loss: scant Surgeon/Risk Assessor: Maxim Gongora MD Anesthesia: moderate sedation Complications: none Operative/Procedure Note Note: The patient was taken to the operative room and placed on the OR table in supine position. Timeout was performed in order to confirm the patient's identity, procedure, anesthesia, antibiotics, as well as any other pertinent information. After adequate anesthesia, and antibiotics, the patient was then placed lithotomy stirrups draped and prepped in the usual surgical fashion. A flexible cystoscope was then inserted without difficulty into the urethra, and subsequently into the bladder. Thorough and systematic visualization of the bladder revealed NO TUMOR , NO STONE. BILATERAL CLEAR EFFLUX of urine from the tic ureteral orifices. Under direct visualization, the old suprapubic tube was deflated and removed. A new 22 [place] Serra catheter was inserted through the mature suprapubic tract, and advanced into the bladder without difficulty. The balloon was inflated, and was visualized to be in the bladder cystoscopically. The bladder was then hydrodistended 2 with the irrigation fluid at 40 cm above the symphysis pubis. No evidence of tumor, increased petechiae, nor Hunner's ulceration was noted. Both ureteral orifices had clear reflux in their orthotopic position. No terminal bleed with drainage. Bladder capacity was normal. The bladder was then drained and the cystoscope was removed under direct visualization. The patient tolerated procedure well and was taken to recovery room in satisfactory condition. Discharge Disposition: Same Day Admissions CC: Maxim Gongora MD
== END ==
LOC: STS 08-02 04:40
DX: N40.1 Benign prostatic hyperplasia with lower urinary tract symptoms (principal); R33.8 Other retention of urine; R56.9 Unspecified convulsions; F84.0 Autistic disorder
CPT/HCPCS: J2250

== ENCOUNTER → 2017-10-09 | Day surgery (SDC) | payer OTHER ==
[~2017-10-09] VITALS: Ht 160 cm; Wt 63.0 kg
[~2017-10-09] MED LIST changes: +BPM-DM-PHEN SY473 ML G TUBE; +LEVAQUIN750 M1 PO
--- NOTE | 2017-10-09 14:10 | Operative Report ---
Operative/Inv Procedure Report Surgery Date: 10/09/17 Name of Procedure: CYSTO: SPT CHANGE Pre-Operative Diagnosis: NEUROGENIC BLADDER WITH SPT Post-Operative Diagnosis: SAME Estimated Blood Loss: scant Surgeon/Laborer Golf Course: Maxim Gongora MD Anesthesia: moderate sedation Drains: new 18fr sood used as SPT Complications: NONE Operative/Procedure Note Note: The patient was taken to the operative room and placed on the OR table in supine position. Timeout was performed in order to confirm the patient's identity, procedure, anesthesia, antibiotics, as well as any other pertinent information. After adequate anesthesia, and antibiotics, the patient was then placed lithotomy stirrups draped and prepped in the usual surgical fashion. A 22 Hungarian cystoscope sheath with a 30 angle lens was inserted into the urethra and advanced into the bladder without difficulty. The bladder was noted to have the findings as discussed above. The bladder was then hydrodistended 2 with the irrigation fluid at 40 cm above the symphysis pubis. No evidence of tumor, increased petechiae, nor Hunner's ulceration was noted. Both ureteral orifices had clear reflux in their orthotopic position. No terminal bleed with drainage. Bladder capacity was normal. Under direct vision, the old sood/SPT was deflated and removed. A new 18fr silicone sood was inserted via the mature SPT tract without difficulty, and visualized in the bladder before inflating the balloon. The bladder was then drained and the SPT, and the cystoscope was removed under direct visualization. The patient tolerated procedure well and was taken to recovery room in satisfactory condition. Discharge Disposition: PACU Additional Comments: pt tolerated procedure well including abx. CC: Maxim Gongora MD
== END ==
LOC: STS 03:32
DX: N31.9 Neuromuscular dysfunction of bladder, unspecified (principal); N40.1 Benign prostatic hyperplasia with lower urinary tract symptoms; N13.8 Other obstructive and reflux uropathy; F84.0 Autistic disorder
CPT/HCPCS: J0696

== ENCOUNTER 2017-11-13 13:52 | Emergency (ER) | payer OTHER ==
--- NOTE | 2017-11-13 14:28 | ED ANIMAL BITE/WOUND CHECK ---
History of Present Illness General Chief Complaint: Suture Removal/Wound Recheck Stated Complaint: SUTURE REMOVAL Source: old records Exam Limitations: CEREBAL PALSY Vital Signs & Intake/Output Vital Signs & Intake/Output Vital Signs Date Time Temp Pulse Resp B/P B/P Pulse O2 O2 Flow FiO2 Mean Ox Delivery Rate 11/13 1429 97.0 24 Allergies Coded Allergies: Penicillins (Severe, DIFFICULTY BREATHING 10/08/17) venom-honey bee (Severe, HIVES 10/08/17) Cephalosporins (UNKNOWN PER 10/08/17) NSAIDS (Non-Steroidal Anti-Inflamma (UNKNOWN PER 10/08/17) latex (UNKNOWN PER 10/08/17) shellfish derived (UNKNOWN PER 10/08/17) sulfamethoxazole (From BACTRIM) (UNKNOWN PER 10/08/17) trimethoprim (From BACTRIM) (UNKNOWN PER 10/08/17) Reconcile Medications Acetaminophen 325 MG TABLET 2 TAB G TUBE Q4H PRN PAIN/TEMP>100.5 (Reported) Acetaminophen (Acephen) 650 MG SUPP.RECT 1 SUPP KS Q4H PRN PAIN/TEMP>100.5 ( Reported) Bacitracin 500 UNIT/GRAM OINT...G. 1 KAITY TOP AD PRN ABRASIONS/LACERATIONS ( Reported) apply to affected area(s) Bisacodyl 10 MG SUPP.RECT 1 SUP RC DAILY PRN CONSTIPATION (Reported) Brompheniram/Phenylephrine/Dm (Bpm-Dm-Phen Syrup) 2 MG-5 MG-10 MG/5 ML LIQUID 10 ML G TUBE TID PRN COUGH/CONGESTION (Reported) Epinephrine (Epipen 2-Blayne) 0.3 MG/0.3 ML AUTO.INJCT 0.3 MG INJ AD PRN ANAPHYLAXIS (Reported) Ergocalciferol (Vitamin D2) (Vitamin D2) 50,000 UNIT CAPSULE 1 CAP G TUBE Q30D SUPPLEMENT (Reported) Esomeprazole Magnesium (Nexium) 40 MG SUSPDR.PKT 1 PAC G TUBE DAILY GI ( Reported) Ferrous Sulfate (Ferosul) 220 MG (44 MG IRON)/5 ML SOLUTION 7.4 ML G TUBE BID SUPPLEMENT (Reported) Ipratropium/Albuterol Sulfate (Iprat-Albut 0.5-3(2.5) MG/3 Ml) 0.5 MG-3 MG (2.5 MG BASE)/3 ML AMPUL.NEB 1 VIAL INH Q4H PRN COUGH/WHEEZING (Reported) Lactobacillus Acidophilus (Acidophilus) 1 EACH CAPSULE 1 CAP G TUBE TID PROBIOTIC (Reported) Levetiracetam (Keppra) 100 MG/ML SOLUTION 7 ML G TUBE BID SEIZURES (Reported) Levothyroxine Sodium 25 MCG TABLET 1 TAB G TUBE DAILY THYROID (Reported) Magnesium Hydroxide (Milk Of Magnesia) 400 MG/5 ML ORAL.SUSP 30 ML G TUBE DAILY CONSTIPATION (Reported) Melatonin 1 MG/ML LIQUID 5 ML G TUBE QHS SUPPLEMENT (Reported) Na Phos,M-B/Na Phos,Di-Ba (Fleet Enema) 19 GRAM-7 GRAM/118 ML ENEMA 1 E RC DAILY PRN CONSTIPATION (Reported) [NEPRO VANILLA] 237 ML G TUBE BID SUPPLEMENT (Reported) [NEPRO VANILLA] 356 ML G TUBE BID SUPPLEMENT (Reported) Risperidone (Risperidone Odt) 2 MG TAB.RAPDIS 1 TAB G TUBE BID UNKNOWN ( Reported) Zinc Oxide (Desitin) 13 % CREAM..G. 1 KAITY TOP DAILY BUTTOCKS AREA (Reported) Triage Nurses Notes Reviewed? yes Onset: Abrupt Duration: better Timing: recent history Injury Environment: home HPI: Patient is a 37-year-old male with past medical history of cerebral palsy who presents emergency room for concerns of a witnessed fall or patient was evaluated at [facility] emergency room 7 days ago where he had #2 bennett placed to left scalp in which caregiver states no concerns infection patient is at baseline mental status. Past History Medical History Any Pertinent Medical History? 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 Blood Disorders: anemia Cancer(s): NONE History of MRSA: Yes History of VRE: No History of CDIFF: No Surgical History Surgical History: suprapubic cystostomy status post gastrostomy gastrostomy tube Psychosocial History Who do you live with Other (see notes) What is your primary language Sudanese Family History Hx Contributory? No Review of Systems Review of Systems Constitutional: Reports: no symptoms. EENTM: Reports: no symptoms. Respiratory: Reports: no symptoms. Cardiovascular: Reports: no symptoms. GI: Reports: no symptoms. Genitourinary: Reports: no symptoms. Musculoskeletal: Reports: no symptoms. Skin: Reports: see HPI. Neurological/Psychological: Reports: no symptoms. Hematologic/Endocrine: Reports: no symptoms. Immunologic/Allergic: Reports: no symptoms. All Other Systems: Reviewed and Negative Physical Exam Physical Exam General Appearance: no apparent distress, alert, comfortable Head: atraumatic Eyes: Bilateral: normal appearance. Ears, Nose, Throat: hearing grossly normal Neck: normal inspection Respiratory: no respiratory distress Neurologic/Psych: no motor/sensory deficits Skin: intact, normal color Diagram Head: 1) Noted well-healing 1 cm laceration with #2 intact bennett no surrounding erythema warmth or discharge Progress Differential Diagnosis: abscess, cellulitis Plan of Care: #2 bennett were removed without complications bacitracin was applied no signs of infection on exam Departure Departure Disposition: HOME OR SELF CARE Condition: Stable Clinical Impression Primary Impression: Removal of staple Secondary Impressions: Visit for wound check Referrals: Matt Dodd MD (PCP/Family) Additional Instructions: As discussed apply bacitracin to the region once a day for the following 3 days. If you note signs infection redness, pain, swelling, discharge return to emergency room. Departure Forms: Customer Survey General Discharge Information
== END 2017-11-13 14:30 ==
LOC: ERH 13:52
DX: Z48.02 Encounter for removal of sutures (principal)